=== PATIENT | male | born 1960 | race Caucasian/White ===

== ENCOUNTER → 2018-07-31 07:59 | Outpatient (CLI) | payer BC, SELFPAY ==
[2018-07-31 10:42] LABS: Absolute Neutrophil Count 6.4 X10^3/uL (2.0-7.7); Basophil# 0.01 X10^3/uL; Basophil% 0.1 % (0-1); Eosinophil# 0.08 X10^3/uL; Eosinophils% 1.1 % (0-5); Hematocrit 44.4 % (40-54); Hemoglobin 14.3 g/dl (13.0-16.5); Lymphocyte % 9.2 % (19-41); Mean Corp Hgb Conc 32.2 g/gl (32-36); Mean Corpuscular Hgb 31.2 pg (27.0-32.0); Mean Corpuscular Volume 96.9 fL (80-94); Monocyte# 0.39 X10^3/uL; Monocyte% 5.1 % (0-10); Neutrophil % 84.2 % (47-70); Platelet Count 156 K/mm3 (150-450); RBC Distribution Width SD 45.1 fl (35.1-43.9); Red Blood Count 4.58 M/mm3 (4.6-6.2); White Blood Count 7.6 K/mm3 (4.4-11.0)
[2018-07-31 10:43] LABS: POSITIVE COUNT NO; POSITIVE DIFFERENTIAL NO; POSITIVE MORPHOLOGY NO
[2018-07-31 11:12] LABS: AST(SGOT) 9 U/L (15-37); Alanine Aminotransfer ALT/SGPT 24 U/L (16-61); Cholesterol 179 mg/dL (200); High Density Lipoprotein 54 mg/dL; Triglycerides 109 mg/dL; Very Low Density Lipoprotein 22 mg/dL (5-40)
--- OUTSIDE RECORDS SUMMARY | 2018-10-04 15:08 | XMS RPT_ITS ---
:1960 Author Organization OHIP Care Team Providers Name Role Phone Nancy Seals Attending Unavailable Nancy Seals Referring Unavailable Nancy Seals Primary Care Unavailable PROBLEMS PROBLEMS DATE TYPE CONDITION / CODE ATTENDING STATUS SOURCE 07/31/2018 Unknown 272.4 - Other and Nancy Seals Active Tania unspecified [facility] hyperlipidemia / Hospital 272.4(ICD-9) Repository 07/31/2018 Unknown E78.5 - Nancy Seals Active [place] Hyperlipidemia, Community unspecified / Hospital E78.5(ICD-10) Repository PROCEDURES PROCEDURES No Procedure Records FoundRESULTS RESULTS CBC W/DIFF, AUTOMATED Collected: 07/31/2018 Status: F Source: TANIA 8:03 AM [facility] REPOSITORY TYPE CODE TESTS RESULT OUT OF RANGE REFERENCE UNITS LAB L100.1000 4.4-11.0 K/mm3 Normal WBC 7.6 LAB L100.1200 4.6-6.2 M/mm3 Low RBC 4.58 LAB L100.1300 13.0-16.5 g/dl Normal HGB 14.3 LAB L100.1400 40-54 % Normal HCT 44.4 LAB L100.1500 80-94 fL High MCV 96.9 LAB L100.1600 27.0-32.0 pg Normal MCH 31.2 LAB L100.1700 32-36 g/gl Normal MCHC 32.2 LAB L100.1810 11.6-14.6 % Normal RDW CV 13.0 LAB L100.1820 35.1-43.9 fl High RDW SD 45.1 LAB L100.1900 150-450 K/mm3 Normal PLT 156 LAB L100.2000 6.2-12.0 fl Normal MPV 12.0 LAB L100.2100 47-70 % High NEUT% 84.2 LAB L100.2200 19-41 % Low LY% 9.2 LAB L100.2300 0-10 % Normal MONO% 5.1 LAB L100.2400 0-5 % Normal EO% 1.1 LAB L100.2500 0-1 % Normal BASO% 0.1 LAB L100.2550 0.0-0.9 % Normal IM GRAN % 0.300 Result Comment: IG% - Immature Granulocytes (promyelocytes, myelocytes and metamyelocytes) > 1% indicates that a LEFT SHIFT is Present. LAB L100.2620 2.0-7.7 X10 3/uL Normal Absolute Neut 6.4 LAB L100.2720 0.83-4.51 X10 3/ul Low Absolute Lymph 0.70 Performed By: #### L100.0100 #### [facility] [address], [place], [address] LIPID PROFILE Collected: 07/31/2018 Status: F Source: COCHRANE 8:03 AM [facility] REPOSITORY TYPE CODE TESTS RESULT OUT OF RANGE REFERENCE UNITS LAB L501.4900 200 mg/dL Normal CHOL 179 Result Comment: <200 mg/dL Desirable 200-240 mg/dL Borderline >240 mg/dL High Risk LAB L501.5000 mg/dL Normal TRIG 109 Result Comment: The drugs N-Acetylcysteine and Metamizole may falsely depress this assay. Serum Triglycerides Reference Interval Normal <150 mg/dL Borderline high 150 - 199 mg/dL High 200 - 499 mg/dL Very High > or = 500 mg/dL LAB L501.6400 mg/dL Normal HDL 54 Result Comment: The drugs N-Acetylcysteine and Metamizole may falsely depress this assay. Reference Range HDL <40 mg/dL Low HDL Cholesterol HDL >or= 60 mg/dL High HDL Cholesterol LAB L501.6500 0-130 mg/dL Normal LDL 103 LAB L501.6600 5-40 mg/dL Normal VLDL 22 Performed By: #### L500.4100 #### [facility] [address] [place], [address] AST(SGOT) Collected: 07/31/2018 Status: F Source: TANIA 8:03 AM [facility] REPOSITORY TYPE CODE TESTS RESULT OUT OF RANGE REFERENCE UNITS LAB L501.4100 15-37 U/L Low AST 9 Performed By: #### L501.4100 #### [facility] [address] [place], [address] ALANINE AMINOTRANSFERAS Collected: 07/31/2018 Status: F Source: TANIA (SGPT) 8:03 AM [facility] REPOSITORY TYPE CODE TESTS RESULT OUT OF RANGE REFERENCE UNITS LAB L501.4405 16-61 U/L Normal ALT 24 Performed By: #### L501.4405 #### [facility] [address] [place], [address] ALLERGIES ALLERGIES No Allergies Records FoundENCOUNTERS ENCOUNTERS ADMIT/DISCHARGE ACCOUNT ADMITTING ENCOUNTER LOCATION SOURCE NUMBER CLASS 07/31/2018 [id number] Ambulatory [facility] ing:MTLAB Repository PAYERS PAYERS ENCOUNTER GUARANTOR PAYER SUBSCRIBER SOURCE 07/31/2018 CHELSEY WHITE Primary CHELSEY Marin [id number] Insurance:[facility] : [place] Number: [id number] 17137Nlt: (582) [id number] Repository [phone] () Date:[id number] [id number] [place] [address] [id number]: 07/31/2018 Secondary NOT GIVENPAZ Marin Insurance:SELF PAY [facility] Number: Effective Repository Date:2018-07-31
== END ==
PROVIDERS: Family Provider Family Medicine; PCP Family Medicine; Referring Provider Family Medicine; Visit Provider Family Medicine
DX: E78.5 Hyperlipidemia, unspecified (principal)
CPT/HCPCS: 36415; 80061; 84450; 84460; 85025

== ENCOUNTER → 2019-08-19 07:01 | Outpatient (CLI) | payer BC, SELFPAY ==
[2019-08-19 10:40] LABS: AST(SGOT) 10 U/L (15-37); Alanine Aminotransfer ALT/SGPT 26 U/L (16-61); Cholesterol 171 mg/dL (200); High Density Lipoprotein 49 mg/dL; Triglycerides 83 mg/dL; Very Low Density Lipoprotein 17 mg/dL (5-40)
== END ==
PROVIDERS: PCP Family Medicine; Referring Provider Family Medicine; Visit Provider Family Medicine
DX: Z00.00 Encounter for general adult medical examination without abnormal findings (principal); Z12.5 Encounter for screening for malignant neoplasm of prostate; E78.5 Hyperlipidemia, unspecified
CPT/HCPCS: 36415; 80061; 84153; 84450; 84460; G0103

== ENCOUNTER → 2023-08-20 | Outpatient (CLI) | payer BC, SELFPAY ==
[2023-08-20 10:03] LABS: Absolute Lymphocyte Count 1.33 X10^3/uL (0.83-4.51); Basophil# 0.04 X10^3/uL; Basophil% 0.8 % (0-1); Eosinophil# 0.08 X10^3/uL; Eosinophils% 1.6 % (0-5); Hematocrit 40.6 % (40-54); Hemoglobin 13.4 g/dL (13.0-16.5); Lymphocyte # 1.33 X10^3/ul (0.83-4.51); Lymphocyte % 27.4 % (19-41); Mean Corpuscular Hgb 31.7 pg (27.0-32.0); Mean Platelet Vol. 11.6 fl (6.2-12.0); Monocyte# 0.43 X10^3/uL; Monocyte% 8.8 % (0-10); NRBC Flagged by Analyzer 0 % (0-5); Neutrophil # 2.97 X10^3/uL (2.7-7.7); Neutrophil % 61.2 % (47-70); Platelet Count 171 K/mm3 (150-450); RBC Distribution Width CV 12.9 % (11.6-14.6); RBC Distribution Width SD 45.1 fl (35.1-43.9); Red Blood Count 4.23 M/mm3 (4.6-6.2); White Blood Count 4.9 K/mm3 (4.4-11.0)
[2023-08-20 11:34] LABS: AST(SGOT) 15 U/L (15-37); Alanine Aminotransfer ALT/SGPT 30 U/L (16-61); Cholesterol 173 mg/dL (200); High Density Lipoprotein 54 mg/dL; Magnesium 2.4 mg/dL (1.6-2.6); Triglycerides 129 mg/dL; Very Low Density Lipoprotein 26 mg/dL (5-40)
== END | disposition home or self-care (01) ==
PROVIDERS: PCP Family Medicine; Referring Provider Family Medicine; Visit Provider Family Medicine
DX: E78.5 Hyperlipidemia, unspecified (principal); K21.9 Gastro-esophageal reflux disease without esophagitis
CPT/HCPCS: 36415; 80061; 83735; 84450; 84460; 85025

== ENCOUNTER → 2023-08-29 | Outpatient (CLI) | payer BC, SELFPAY ==
[2023-08-29 18:05] LABS: PSA,Total - Annual Screen 1.33 ng/mL (0.00-4.00)
== END | disposition home or self-care (01) ==
LOC: MTLAB 15:32
PROVIDERS: PCP Family Medicine; Referring Provider Family Medicine; Visit Provider Family Medicine
DX: Z12.5 Encounter for screening for malignant neoplasm of prostate (principal)
CPT/HCPCS: 36415; 84153; G0103

== ENCOUNTER → 2025-01-05 | Outpatient (CLI) | payer MEDICARE, SELFPAY ==
--- NOTE | 2025-01-05 14:05 | US_ITS ---
PROCEDURE: THYROID, 01/05/2025 REASON FOR EXAM: NODULE TECHNIQUE: Grayscale and color Doppler imaging of the thyroid was performed. COMPARISON: None FINDINGS: Right lobe measures 5.5 x 1.8 x 1.4cm. Essentially homogeneous background echotexture. No abnormal vascularity. No solid or mostly solid nodules are identified. Left lobe measures 7.7 x 3.53.4 cm. Essentially homogeneous background echotexture. No abnormal vascularity. Nodules as below: *6.0 x 3.1 x 3.3 cm, solid, mostly isoechoic, slightly taller than wide on transverse imaging, TI-RADS 4. Isthmus measures 5 mm in thickness. Nodules as below: *1.4 x 0.9 x 1.4 cm, solid, hypoechoic, TI-RADS 4. *1.4 x 1.5 x 0.7 cm, solid, hypoechoic, TI-RADS 4. US/Thyroid IMPRESSION: 1. Assessment is TI-RADS 4. A 6.0 cm nodule on the LEFT and a 1.5 cm nodule in the isthmus meet criteria for FNA which is recommended as per the below. A 1.4 cm TI-RADS 4 nodule in the LEFT warrants f ollow-up in 1 year per the below. 2. Otherwise homogeneous gland with relative enlargement of the LEFT lobe by th e dominant nodule. Management recommendations for TI-RADS 4 findings: FNA if = 1.5 cm; Follow if = 1 cm at 1, 2, 3, and 5 years. Recommendations per ACR Thyroid Imaging, Reporting and Data System (TI-RADS): Lio griffith Paper of the ACR TI-RADS Committee, 2017 ([email or web address]/[email or web address]) Reading Location: [id number]
--- OUTSIDE RECORDS SUMMARY | 2025-01-05 22:30 | XMS RPT_ITS | CCD ---
Author Organization [facility] Care Team Providers Care Customs Compliance Specialist Name Role Phone Scott Spears Referring Unavailable Scott Spears Primary Care Unavailable Scott Spears Attending Unavailable Scott Spears Referring Unavailable Scott Spears Primary Care Unavailable Scott Spears Attending Unavailable Problems Problem Classification Problem Date Documented Da te Episodic/Chronic Hyperplasia of prostate (1 source) Benign prostatic hyperplasia with lower urinary tract symptoms; Translations: [Benign prostatic hyperplasia with lower urinary tract symptoms] Onset: 01-03-2025 Chronic Thyroid disorders (1 source) Nontoxic single thyroid nodule; Translations: [Nontoxic single thyroid nodule] Onset: 01-03-2025 Chronic Results Test Name Value Interpretation Reference Range Facility No Panel InformationOrdered By: Nancy Seals on 08-29-2023 Prostate Specific Antigen Screen 1.33 ng/mL 0.00-4.00 [facility] Comment on above: This test was perfor med using the TPSA assay method for theFoodtoeat chemistry system. Values obtained with differentassay methods cannot be used interchangably.When changing PSA assays in the course of monitoring apatient, additional sequential testing should be carriedout to confirm baseline values. Absolute lymphocyte countOrd ered By: Nancy Seals on 08-20-2023 Lymphocytes Auto (Unsp spec) [#/Vol] 1.33 10*3/uL 0.83-4.51 [facility] Automated lymphocyte count a s percentage of total leukocytesOrdered By: Nancy Seals on 08-20-2023 Lymphocytes/100 WBC Auto (Unsp spec) 27.4 % 19-41 [facility] Basophil percentageOrdered B y: Nancy Seals on 08-20-2023 Basophils/100 WBC (Bld) 0.8 % 0-1 [facility] Cholesterol [Mass/Vol] 173 mg/dL <200 [facility] Comment on above: <200 mg/dL Desirable 200-240 mg/dL Borderline >240 mg/dL High Risk Eosinophils/100 WBC (Bld) 1.6 % 0-5 [facility] Hemoglobin (Bld) [Mass/Vol] 13.4 g/dL 13.0-16.5 [facility] Monocytes/100 WBC (Bld) 8.8 % 0-10 [facility] Neutrophils (Bld) [#/Vol] 3.0 10*3/uL 2.0-7.7 [facility] Neutrophils/100 WBC (Bld) 61.2 % 47-70 [facility] Triglyceride [Mass/Vol] 129 mg/dL <199 [facility] Comment on above: The drugs N-Acetylcy steine and Metamizole may falsely depress this assay.Serum Triglycerides Reference Interval Normal <150 mg/dL Borderline high 150 - 199 mg/dL High 200 - 499 mg/dL Very High > or = 500 mg/dL WBC (Bld) [#/Vol] 4.9 10*3/uL 4.4-11.0 [facility] Determination of erythrocyte mean corpuscular volume (MCV)Ordered By: Nanyc Seals on 08-20-2023 MCV (RBC) [Entitic vol] 96.0 fL 80-94 [facility] Erythrocyte distribution wid th ratioOrdered By: Nancy Seals on 08-20-2023 Erythrocyte distribution width (RBC) [Ratio] 12.9 % 11.6-14.6 [facility] Erythrocyte distribution wid th standard deviationOrdered By: Nancy Seals on 08-20-2023 Erythrocyte distribution width (RBC) [Entitic vol] 45.1 fL 35.1-43.9 [facility] Hematocrit Auto (Bld) [Volum e fraction]Ordered By: Nancy Seals on 08-20-2023 Hematocrit (Bld) [Volume fraction] 40.6 % 40-54 [facility] Immature granulocytes/100 WB C Auto (Bld)Ordered By: Nancy Seals on 08-20-2023 Immature granulocytes/100 WBC (Bld) 0.200 % 0.0-0.9 [facility] Comment on above: IG% - Immature Granu locytes (promyelocytes, myelocytes and metamyelocytes) > 1% indicates that a LEFT SHIFT is Present. Laboratory - Chemistry and C hemistry - challengeOrdered By: Nancy Seals on 08-20-2023 ALT [Catalytic activity/Vol] 30 U/L 16-61 [facility] Cholesterol in HDL [Mass/Vol] 54 mg/dL >40 [facility] Comment on above: The drugs N-Acetylcy steine and Metamizole may falsely depress this assay. Reference Range HDL <40 mg/dL Low HDL Cholesterol HDL >or= 60 mg/dL High HDL Cholesterol Cholesterol in LDL [Mass/Vol] 93 mg/dL 0-130 [facility] Magnesium [Mass/Vol] 2.4 mg/dL 1.6-2.6 [facility] - Hematology and Cell countsOrdered By: Nancy Seals on 08-20-2023 MCH (RBC) [Entitic mass] 31.7 pg 27.0-32.0 [facility] MCHC (RBC) [Mass/Vol] 33.0 g/dL 32-[address] [facility] Nucleated RBC/100 WBC (Bld) [Ratio] 0 % 0-5 [facility] Platelet mean volume (Bld) [Entitic vol] 11.6 fL 6.2-12.0 [facility] Platelets (Bld) [#/Vol] 171 10*3/uL 150-450 [facility] No Panel InformationOrdered By: Nancy Seals on 08-20-2023 VLDL Cholesterol 26 mg/dL 5-40 [facility] RBC Auto (Bld) [#/Vol]Ordere d By: Nancy Seals on 08-20-2023 RBC (Bld) [#/Vol] 4.23 10*6/uL 4.6-6.2 [facility] Thin prep Papanicolaou smear with manual screeningOrdered By: Nancy Seals on 08-20-2023 Thin prep Papanicolaou smear with manual screening 15 U/L 15-37 [facility] Encounters Encounter Date Encounter Type Care Provider Facility Start: 01-07-2025 ambulatory Scott Spears Facilit y:[facility] Start: 01-05-2025 ambulatory Scott Spears Facilit y:[facility] Start: 08-29-2023 End: 08-29-2023 ambulatory [facility] Work Phone: Start: 08-29-2023 End: 08-29-2023 Patient encounter procedure [facility] Work Phone: Start: 08-20-2023 End: 08-20-2023 ambulatory [facility] Work Phone: Start: 08-20-2023 End: 08-20-2023 Patient encounter procedure [facility] Work Phone: Payers Date Payer Category Payer Self-pay [id number] 2024 Private Health Insurance [id number] Unknown NATALIE [id number] Unknown [id number] Unknown [id number] Social History Date Type Detail Facility Tobacco smoking stat [facility] Unknown if ever smoked [facility] Work Phone: Start: 1960 Sex Assigned At Male [facility] Evaluation note Note Date & Type Note Facility Evaluation note No assessment information availa ble [facility] Work Phone: Chief Complaint and Reason for Visit Chief Complaint EORDER Chief Complaint EORDER PSA Summary Purpose Family History No Family History Records Found Advance Directives No Advanced Directives Records Found Additional Source Comments Care Teams (unrecognized sec tion and content) Team Status: Active Member Role Status Dates Dr. Nancy Seals MD Family Provider Active Dr. Nancy Seals MD Primary Care Provider Active Team Status: Inactive Member Role Status Dates Dr. Nancy Seals MD Primary Care Prov ider, Attending Provider, Referring Provider Active Goals (unrecognized section and content) Goals may be documented in a n alternate sectionGoals may be documented in an alternate section (unrecognized sect ion and content) No Status Records Found INFORMATION SOURCE (unrecogn ized section and content) DATE CREATED AUTHOR 01/04/2025 [facility] FOR RECORDS PERTAINING TO PATIENTS WHO ARE OR HAVE BEEN ENROLLED IN A CHEMICAL DEPENDENCY/SUBSTANCEABUSE PROGRAM, SOME INFORMATION MAY BE OMITTED. This clinical summary was aggregated from multiple sources. Caution should be exercised in using it in the provision of clinical care. This summary normalizes information from multiple sources, and as a consequence, information in this document may materially change the coding, format and clinical context of patient data. In addition, data may be omitted in some cases. CLINICAL DECISIONS SHOULD BE BASED ON THE PRIMARY CLINICAL RECORDS. [facility] [employer] [facility]. provides no warranty or guarantee of the accuracy or completeness of information in this document.
== END | disposition home or self-care (01) ==
PROVIDERS: PCP Family Medicine; Referring Provider Family Medicine; Visit Provider Family Medicine
DX: E04.1 Nontoxic single thyroid nodule (principal)
CPT/HCPCS: 76536

== ENCOUNTER → 2025-01-07 | Outpatient (CLI) | payer MEDICARE, SELFPAY ==
--- NOTE | 2025-01-07 10:22 | US_ITS ---
PROCEDURE: POST VOID RESIDUAL BLADDER 01/07/2025 REASON FOR EXAM: BPH OBSTRUCTION TECHNIQUE: POST VOID RESIDUAL BLADDER COMPARISON: None FINDINGS: Prevoid volume: 49.3 mL Postvoid volume 1.9 mm. Bladder wall thickness: 3 mm. US/Post Void Residual Bladder IMPRESSION: No significant postvoid residual. Reading Location: [id number]
== END | disposition home or self-care (01) ==
LOC: US 10:20
PROVIDERS: PCP Family Medicine; Referring Provider Family Medicine; Visit Provider Family Medicine
DX: N40.1 Benign prostatic hyperplasia with lower urinary tract symptoms (principal)
CPT/HCPCS: 51798

== ENCOUNTER → 2025-05-19 | Outpatient (CLI) | payer MEDICARE, SELFPAY ==
--- NOTE | 2025-05-19 13:04 | RAD_ITS ---
PROCEDURE: RAD/Chest PA and Lateral
[2025-05-19 15:00] LABS: Hematocrit 33.2 % (40-54); Hemoglobin 9.9 g/dL (13.0-16.5); Immature Granulocytes Count 0.020 X10^3/uL (0.0-0.0); Mean Corp Hgb Conc 29.8 g/dL (32-36); Mean Corpuscular Volume 79.6 fL (80-94); NRBC Flagged by Analyzer 0 % (0-5); POSITIVE MORPHOLOGY YES; Platelet Count 256 K/mm3 (150-450); RBC Distribution Width CV 22.5 % (11.6-14.6); RBC Distribution Width SD 64.2 fl (35.1-43.9); Red Blood Count 4.17 M/mm3 (4.6-6.2); White Blood Count 6.1 K/mm3 (4.4-11.0)
[2025-05-19 15:01] LABS: Differential Indicated SCAN CRITERIA MET
[2025-05-19 15:26] LABS: Anisocytosis 1+
[2025-05-19 15:35] LABS: AST(SGOT) 17 U/L (<=37); Alanine Aminotransfer ALT/SGPT 19 U/L (<=46); Albumin, Serum 4.2 g/dL (3.4-4.8); Alkaline Phosphatase 92 U/L (40-129); Anion Gap 11 (5-15); BUN 20 mg/dL (4-19); BUN/Creat Ratio 20.0 RATIO (10-20); Calcium,Total 9.7 mg/dL (7.6-11.0); Carbon Dioxide 26.9 mmol/L (21.0-32.0); Chloride 101 mmol/L (98-108); Cholesterol 146 mg/dL (<=200); Ferritin 49 ng/mL (37-417); Globulin 3.0 g/dL (2.2-4.2); Glucose 109 mg/dL (70-99); Low Density Lipoprotein Calc. 88 mg/dL; Potassium 4.1 mmol/L (3.3-5.1); Pro- Brain NATRIURETIC PEPTIDE 324 pg/mL (<=900); Triglycerides 102 mg/dL; Very Low Density Lipoprotein 20 mg/dL (5-40); Vitamin B12 1298 pg/mL (180-914); cholesterol:hdl ratio screen 3.72
[2025-05-19 15:57] LABS: Iron 25 ug/dL (65-175); Iron Binding Capacity,Total 430 ug/dL (250-450); Iron Binding Capacity,Unsat 405 ug/dL (228-428)
[2025-05-19 16:05] LABS: FOLATES,SERUM (FOLIC ACID) 23.00 ng/mL (4.60-34.80)
== END | disposition home or self-care (01) ==
PROVIDERS: PCP Family Medicine; Referring Provider Family Medicine; Visit Provider Family Medicine
DX: E04.1 Nontoxic single thyroid nodule (principal); I21.9 Acute myocardial infarction, unspecified; R06.02 Shortness of breath; D64.9 Anemia, unspecified
CPT/HCPCS: 36415; 71046; 80053; 80061; 82607; 82728; 82746; 83540; 83550; 83880; 84439; 84443; 85025; 86376; 86800

== ENCOUNTER → 2025-06-01 | Outpatient (CLI) | payer MEDICARE, SELFPAY ==
[2025-06-01 12:21] LABS: Hematocrit 35.4 % (40-54); Hemoglobin 10.3 g/dL (13.0-16.5); Mean Corp Hgb Conc 29.1 g/dL (32-36); Mean Corpuscular Volume 82.5 fL (80-94); Mean Platelet Vol. 11.0 fl (6.2-12.0); POSITIVE MORPHOLOGY YES; Platelet Count 343 K/mm3 (150-450); RBC Distribution Width CV 24.7 % (11.6-14.6); RBC Distribution Width SD 73.1 fl (35.1-43.9); Red Blood Count 4.29 M/mm3 (4.6-6.2); White Blood Count 5.6 K/mm3 (4.4-11.0)
[2025-06-01 12:22] LABS: Scan Indicated on CBC? Y/N YES- FLAGS NOTED
[2025-06-01 12:47] LABS: Differential Comment SCANNED
== END | disposition home or self-care (01) ==
LOC: MTLAB 11:17
PROVIDERS: PCP Family Medicine; Referring Provider Family Medicine; Visit Provider Family Medicine
DX: D64.9 Anemia, unspecified (principal)
CPT/HCPCS: 36415; 85027

== ENCOUNTER → 2025-06-03 | Outpatient (CLI) | payer MEDICARE, SELFPAY ==
--- NOTE | 2025-06-03 06:52 | ECHOCS_ITS ---
Reason For Study Reason For Study: SOB Procedure This was a 2D Doppler, Color Flow transthoracic echocardiogram. Exam performed in department. Left Ventricle Normal size left ventricle. Normal left ventricle wall thickness. Left ventriclar EF by Gomez's biplane: 64%. Normal systolic function. Normal diastolic function. E/e' suggest normal filling pressures. No regional wall motion abnormalities noted. Right Ventricle Normal right ventricle. Normal systolic function. Unable to estimate RV systolic pressure due to insufficient tricuspid regurgitant envelope. Atria The left and right atria are normal. Right atrial pressure estimated to be: 3 mmHg. Normal atrial septum. Mitral Valve Normal mitral valve. No mitral stenosis. Trace mitral regurgitation. Tricuspid Valve Normal tricuspid valve. No tricuspid stenosis. Trace tricuspid regurgitation. Aortic Valve Tricuspid valve. Calcified right coronary cusp. No hemodynamically significant aortic stenosis. No aortic regurgitation. Pulmonic Valve Normal pulmonic valve. No pulmonic stenosis. Trace pulmonic insufficiency. Great Vessels Normal sized aortic root. Normal ascending aorta. Pericardium/Pleural No pericardial effusion. MMode/2D Measurements & Calculations LVIDd: 5.2 cm IVSd: 1.2 cm Ao root diam: 3.5 cm LVIDs: 3.4 cm LVPWd: 1.1 cm RVDd: 3.8 cm FS: 33.3 % asc Aorta Diam: 3.8 cm LAV(MOD-bp): 71.1 ml LVAd ap4: 39.0 cm2 LAV(MOD-bp) Indexed: 36.4 ml/m2 LVLd ap4: 9.9 cm LAV(MOD-sp2): 70.0 ml EDV(MOD-sp4): 125.7 ml LAV(MOD-sp4): 73.0 ml EDV(sp4-el): 130.0 ml LVAs ap4: 20.5 cm2 LVLs ap4: 8.1 cm ESV(MOD-sp4): 45.3 ml ESV(sp4-el): 43.8 ml EF(MOD-sp4): 64.0 % EF(sp4-el): 66.3 % LVAd ap2: 34.4 cm2 SV(MOD-sp4): 80.4 ml SV(MOD-sp2): 73.0 ml LVLd ap2: 8.2 cm SI(MOD-sp4): 41.2 ml/m2 SI(MOD-sp2): 37.3 ml/m2 EDV(MOD-sp2): 119.3 ml EDV(sp2-el): 122.9 ml LVAs ap2: 19.0 cm2 LVLs ap2: 6.7 cm ESV(MOD-sp2): 46.3 ml ESV(sp2-el): 46.0 ml EF(MOD-sp2): 61.2 % SV(sp4-el): 86.1 ml LA A4 area: 22.1 cm2 RA A4 area: 23.4 cm2 Time Measurements MV dec time: 0.26 sec Doppler Measurements & Calculations MV E max clarke: 53.1 cm/sec Lat Peak E' Clarke: 10.6 cm/sec Med Peak E' Clarke: 7.1 cm/sec MV A max clarke: 62.0 cm/sec E/E' lat: 5.0 E/E' med: 7.4 MV E/A: 0.86 MV V2 max: 77.6 cm/sec MV P1/2t max clarke: 67.9 cm/sec Ao V2 max: 157.8 cm/sec MV max P.4 mmHg MV P1/2t: 58.8 msec Ao max P.0 mmHg MV V2 mean: 41.6 cm/sec MV dec slope: 338.6 cm/sec2 Ao V2 mean: 102.4 cm/sec MV mean P.78 mmHg Ao mean P.7 mmHg MV V2 VTI: 25.2 cm MVA(P1/2t): 3.7 cm2 Ao V2 VTI: 29.9 cm AV (velocity ratio): 0.63 LV V1 max: 106.8 cm/sec PA V2 max: 117.0 cm/sec PI dec slope: 70.7 cm/sec2 LV V1 max P.6 mmHg LV V1 mean P.5 mmHg LV V1 mean: 75.2 cm/sec LV V1 VTI: 18.8 cm ECHO/Echo Complete W/ Contrast Interpretation Summary Normal left ventricular systolic function with EF: 64% by Gomez's biplane. Normal left ventricular diastolic function Normal right ventricular systolic function No hemodynamically significant valvular disease. Ordering Physician: Scott Spears Referring Physician: Scott Spears Performed By: Yanna Amaro RDCS, RVT
--- OUTSIDE RECORDS SUMMARY | 2025-06-03 06:54 | XMS RPT_ITS | CCD ---
Author Organization [facility] Care Team Providers Care Enterprise Account Executive Name Role Phone Tory GAITAN, Dr. Araceli Alvarez Primary Care Provider [phone] Tory GAITAN, Dr. Araceli Alvarez Attending Provider [phone] Tory GAITAN, Dr. Araceli Alvarez Referring Provider Unavailable Primary Care Provider UnavailAraceli Buckley MD Primary Care Provider PA BRITO Attending Unavailable ILEANA HINOJOSA Attending Unavailable ARACELI LOPEZ Primary Care Unavailable PA BRITO Referring Unavailable MICAELA, ILEANA Referring Unavailable ARACELI LOPEZ Primary Care Unavailable ILEANA HINOJOSA Referring Unavailable ILEANA HINOJOSA Attending Unavailable Araceli Lopez Referring Unavailable Araceli Lopez Attending Unavailable Araceli Lopez Primary Care Unavailable Araceli Lopez Referring Unavailable Araceli Lopez Attending Unavailable Araceli Lopez Primary Care Unavailable Araceli Lopez Referring Unavailable Araceli Lopez Attending Unavailable Araceli Lopez Primary Care Unavailable Araceli Lopez Referring Unavailable Araceli Lopez Attending Unavailable Araceli Lopez Primary Care Unavailable Allergies Allergy Classification Reported Allergen(s) Allergy Type Date of Onset Reaction(s) Facility (7 sources) house dust allergenic extract; Translations: [HOUSE DUST] Drug Allergy 5 Other: See Comments [facility] (7 sources) Tetanus immune globulin; Translations: [TETANUS IMMUNE GLOBULIN F(AB')2 (EQUINE)] Drug Allergy 5 Unknown [facility] (7 sources) Animal Dander; Translations: [ANIMAL DANDER] Propensity to adverse reactions to drug 5 Other: See Comments [facility] Medications Current Medications Medication Drug Class(es) Dates Sig (Normalized) Sig (Original) [id number] 200 actuat albuterol 0.09 mg/actuat metered dose inhaler (6 sources) beta2-Adrenergic Agonist take 2 puff(s) by inhalation every four hours as needed for wheezing albuterol HFA (PROVENTIL HFA, VENTOLIN HFA) 90 mcg/actuation inhaler Inhale 2 puffs as instructed every 4 hours as needed for wheezing/shortness of breath. Active atorvastatin 20 mg oral tablet (6 sources) HMG-CoA Reductase Inhibitor take 1 tablet by mouth once daily at bedtime atorvastatin (LIPITOR) 20 mg tablet Take 20 mg by mouth daily at bedtime. Active ferrous sulfate 324 mg delayed release oral tablet (6 sources) Start: 01-09-2016 take 324 mg by mouth once daily ferrous sulfate EC 324 mg (65 mg iron) TbEC Take 324 mg by mouth once daily. 01/09/2016 Active fexofenadine hydrochloride 60 mg oral tablet (6 sources) Histamine-1 Receptor Antagonist Start: 01-07-2023 take 1 capsule by mouth once daily fexofenadine HCl (JUAN 60 MG CAP) Take 1 capsule by mouth once daily. 01/07/2023 Active RABEprazole sodium 20 mg delayed release oral tablet (6 sources) Proton Pump Inhibitor take 1 tablet by mouth once daily at bedtime RABEprazole (ACIPHEX) 20 mg tablet Take 20 mg by mouth daily at bedtime. Active Problems Problem Classification Problem Date Documented Da te Episodic/Chronic Hyperplasia of prostate (1 source) Benign prostatic hyperplasia with lower urinary tract symptoms; Translations: [Benign prostatic hyperplasia with lower urinary tract symptoms] Onset: 01-12-2025 Chronic Other lower respiratory disease (1 source) Shortness of breath; Translations: [Shortness of breath] Onset: 05-24-2025 Episodic Thyroid disorders (20 sources) Multinodular goiter; Translations: [Nontoxic multinodular goiter] Onset: 01-12-2025 01-26-2025 Chronic Results Test Name Value Interpretation Reference Range Facility Thyroid Antibodieson 025 TG AB < 1.0 Normal 0.0-0.9 [facility] Comment on above: Result Comment: Thyr oglobulin Antibody measured by [employer] It should be noted that the presence of thyroglobulin antibodies may not be pathogenic nor diagnostic, especially at very low levels. The assay escort car driver has found that four percent of individuals without evidence of thyroid disease or autoimmunity will have positive TgAb levels up to 4 IU/mL. Performed at: [address] [id number] Electric Shaver Mechanic: Charles Green PhD, Phone: [phone] Performed By: #### L 506.0200, L506.0400, L501.9520, L503.7505, L500.4050, L503.6030, L3300.6750, L503.6550, L100.0100, L503.0106, L500.4100 ####[facility] [address] [place], [place], [id number] THYR PEROX AB 11 IU/mL Normal 0-34 [facility] Comment on above: Performed By: #### L 506.0200, L506.0400, L501.9520, L503.7505, L500.4050, L503.6030, L3300.6750, L503.6550, L100.0100, L503.0106, L500.4100 ####[facility] [address] [facility] [address] [place], [place], [id number] CBC W/Diff, Automatedon 11- Anisocytosis Ql (Bld) 1+ Normal [facility] Comment on above: Performed By: #### L 506.0200, L506.0400, L501.9520, L503.7505, L500.4050, L503.6030, L3300.6750, L503.6550, L100.0100, L503.0106, L500.4100 #### [facility] [address] [facility] [place], [address] Chest PA and Lateralon 05-19 Chest PA and Lateral [facility] [address] [place], [place] [id number] Chest PA and Lateral MR#: [id number] Acct: [id number] Name: CHELSEY WHITE Jr. Rep #: [id number] : 1960 M 64 From: Omero Dunlap MD PCP: Dr. Araceli Lopez MD Status: REG CLI Study: Chest PA and Lateral Date of Exam: 05/19/25 Exam# [id number] Ordering Dr: Araceli Lopez MD PROCEDURE: CHEST PA AND LATERAL 05/19/2025 REASON FOR EXAM: SOB TECHNIQUE: Procedure Code: RADCXR Modality: DX Procedure: CHEST PA AND LATERAL FINDINGS: The heart is normal in size. Left lower lobe focal opacity suspicious for pneumonia. No acute osseous abnormalities. RAD/Chest PA and Lateral IMPRESSION: Left lower lobe opacity suspicious for pneumonia. Reading Location: [facility] CC: Dr. Araceli Lopez MD River Pilot: Signed Normal [facility] Comprehensive Metabolic Prof ilon 05-19-2025 Albumin [Mass/Vol] 4.2 g/dL Normal 3.4-4.8 [facility] Comment on above: Performed By: #### L 506.0200, L506.0400, L501.9520, L503.7505, L500.4050, L503.6030, L3300.6750, L503.6550, L100.0100, L503.0106, L500.4100 #### [facility] [address] [place], [address] Albumin/Globulin [Mass ratio] 1.4 {ratio} Normal 0.9-2.4 [facility] Comment on above: Performed By: #### L 506.0200, L506.0400, L501.9520, L503.7505, L500.4050, L503.6030, L3300.6750, L503.6550, L100.0100, L503.0106, L500.4100 #### [facility] [address] [place], [address] ALK PHOS 92 U/L Normal 40-129 [facility] Comment on above: Performed By: #### L 506.0200, L506.0400, L501.9520, L503.7505, L500.4050, L503.6030, L3300.6750, L503.6550, L100.0100, L503.0106, L500.4100 #### [facility] [address] [place], [place], [phone] ([phone] ALT [Catalytic activity/Vol] 19 U/L Normal <=46 [facility] Comment on above: Performed By: #### L 506.0200, L506.0400, L501.9520, L503.7505, L500.4050, L503.6030, L3300.6750, L503.6550, L100.0100, L503.0106, L500.4100 #### [facility] [address] [place], [place], [phone] AST [Catalytic activity/Vol] 17 U/L Normal <=37 [facility] Comment on above: Performed By: #### L 506.0200, L506.0400, L501.9520, L503.7505, L500.4050, L503.6030, L3300.6750, L503.6550, L100.0100, L503.0106, L500.4100 #### [facility] [address] [place], [place], [phone] Bilirubin [Mass/Vol] 0.22 mg/dL Normal 0.00-1.30 [facility] Comment on above: Performed By: #### L 506.0200, L506.0400, L501.9520, L503.7505, L500.4050, L503.6030, L3300.6750, L503.6550, L100.0100, L503.0106, L500.4100 #### [facility] [address] [place], [address] BUN/CRE 20.0 RATIO Normal 10-20 [facility] Comment on above: Performed By: #### L 506.0200, L506.0400, L501.9520, L503.7505, L500.4050, L503.6030, L3300.6750, L503.6550, L100.0100, L503.0106, L500.4100 #### [facility] [address] [place], [address] Calcium [Mass/Vol] 9.7 mg/dL Normal 7.6-11.0 [facility] Comment on above: Performed By: #### L 506.0200, L506.0400, L501.9520, L503.7505, L500.4050, L503.6030, L3300.6750, L503.6550, L100.0100, L503.0106, L500.4100 #### [facility] [address] [place], [place], [phone] (358) Chloride [Moles/Vol] 101 mmol/L Normal 98-108 [facility] Comment on above: Performed By: #### L 506.0200, L506.0400, L501.9520, L503.7505, L500.4050, L503.6030, L3300.6750, L503.6550, L100.0100, L503.0106, L500.4100 #### [facility] [address] [place], [address] CO2 [Moles/Vol] 26.9 mmol/L Normal 21.0-32.0 [facility] Comment on above: Performed By: #### L 506.0200, L506.0400, L501.9520, L503.7505, L500.4050, L503.6030, L3300.6750, L503.6550, L100.0100, L503.0106, L500.4100 #### [facility] [address] [place], [place], [phone] ([phone] Creatinine [Mass/Vol] 0.98 mg/dL Normal 0.70-1.20 [facility] Comment on above: Performed By: #### L 506.0200, L506.0400, L501.9520, L503.7505, L500.4050, L503.6030, L3300.6750, L503.6550, L100.0100, L503.0106, L500.4100 #### [facility] [address] [place], [place], [phone] (667) GAP 11 Normal 5-15 [facility] Comment on above: Performed By: #### L 506.0200, L506.0400, L501.9520, L503.7505, L500.4050, L503.6030, L3300.6750, L503.6550, L100.0100, L503.0106, L500.4100 #### [facility] [address] [place], [place], [phone] (774) GFR/1.73 sq M.predicted among non-blacks MDRD (S/P/Bld) [Vol rate/Area] 85 mL/min/{1.73_m2} Normal >60 [facility] Comment on above: Result Comment: mL/m in/1.73m2 CKD-EPI Creatinine Equation (2020) Performed By: #### L 506.0200, L506.0400, L501.9520, L503.7505, L500.4050, L503.6030, L3300.6750, L503.6550, L100.0100, L503.0106, L500.4100 #### [facility] [address] [place], [address] Globulin (S) [Mass/Vol] 3.0 g/dL Normal 2.2-4.2 [facility] Comment on above: Performed By: #### L 506.0200, L506.0400, L501.9520, L503.7505, L500.4050, L503.6030, L3300.6750, L503.6550, L100.0100, L503.0106, L500.4100 #### [facility] [address] [place], [address] Glucose [Mass/Vol] 109 mg/dL High 70-99 [facility] Comment on above: Performed By: #### L 506.0200, L506.0400, L501.9520, L503.7505, L500.4050, L503.6030, L3300.6750, L503.6550, L100.0100, L503.0106, L500.4100 #### [facility] [address] [place], [address] Potassium [Moles/Vol] 4.1 mmol/L Normal 3.3-5.1 [facility] Comment on above: Performed By: #### L 506.0200, L506.0400, L501.9520, L503.7505, L500.4050, L503.6030, L3300.6750, L503.6550, L100.0100, L503.0106, L500.4100 #### [facility] [address] [place], [address] Sodium [Moles/Vol] 140 mmol/L Normal 133-145 [facility] Comment on above: Performed By: #### L 506.0200, L506.0400, L501.9520, L503.7505, L500.4050, L503.6030, L3300.6750, L503.6550, L100.0100, L503.0106, L500.4100 #### [facility] [address] [place], [address] T PROT 7.3 g/dL Normal 5.9-8.4 [facility] Comment on above: Performed By: #### L 506.0200, L506.0400, L501.9520, L503.7505, L500.4050, L503.6030, L3300.6750, L503.6550, L100.0100, L503.0106, L500.4100 #### [facility] [address] [place], [place], [phone] Urea nitrogen [Mass/Vol] 20 mg/dL High 4-19 [facility] Comment on above: Performed By: #### L 506.0200, L506.0400, L501.9520, L503.7505, L500.4050, L503.6030, L3300.6750, L503.6550, L100.0100, L503.0106, L500.4100 #### [facility] [address] [place], [place], [phone] Ferritinon 05-19-2025 Ferritin [Mass/Vol] 49 ng/mL Normal 37-417 [facility] Comment on above: Performed By: #### L 506.0200, L506.0400, L501.9520, L503.7505, L500.4050, L503.6030, L3300.6750, L503.6550, L100.0100, L503.0106, L500.4100 #### [facility] [address] [place], [address] Folates,Serum (Folic Acid)on 05-19-2025 FOLATES,SERUM 23.00 ng/mL Normal 4.60-34.80 [facility] Comment on above: Order Comment: N Performed By: #### L 506.0200, L506.0400, L501.9520, L503.7505, L500.4050, L503.6030, L3300.6750, L503.6550, L100.0100, L503.0106, L500.4100 ####[facility] [address] [place], [address] Iron+Iron Binding Capacityon 05-19-2025 Iron [Mass/Vol] 25 ug/dL Low 65-175 [facility] Comment on above: Performed By: #### L 506.0200, L506.0400, L501.9520, L503.7505, L500.4050, L503.6030, L3300.6750, L503.6550, L100.0100, L503.0106, L500.4100 ####[facility] [address] [place], [place], [phone] IRON SATURATION 5.9 Low 9-55 [facility] Comment on above: Performed By: #### L 506.0200, L506.0400, L501.9520, L503.7505, L500.4050, L503.6030, L3300.6750, L503.6550, L100.0100, L503.0106, L500.4100 ####[facility] [address] [place], [place], [id number] TIBC 430 ug/dL Normal 250-450 [facility] Comment on above: Performed By: #### L 506.0200, L506.0400, L501.9520, L503.7505, L500.4050, L503.6030, L3300.6750, L503.6550, L100.0100, L503.0106, L500.4100 ####[facility] [address] [place], [place], [phone] UIBC 405 ug/dL Normal 228-428 [facility] Comment on above: Performed By: #### L 506.0200, L506.0400, L501.9520, L503.7505, L500.4050, L503.6030, L3300.6750, L503.6550, L100.0100, L503.0106, L500.4100 ####[facility] [address] [place], [place], [id number] Lipid Profileon 05-19-2025 CHOL:HDL 3.72 Normal [facility] Comment on above: Performed By: #### L 506.0200, L506.0400, L501.9520, L503.7505, L500.4050, L503.6030, L3300.6750, L503.6550, L100.0100, L503.0106, L500.4100 #### [facility] [address] [place], [place], [phone] (161) Cholesterol [Mass/Vol] 146 mg/dL Normal <=200 [facility] Comment on above: Result Comment: Chol esterol level, Desirable <200 mg/dL Borderline high cholesterol 200-239 mg/dL High cholesterol >=240 mg/dL Recommendations of the NCEP Adult Treatment Panel for the following risk-cutoff thresholds for the [place] population. Performed By: #### L 506.0200, L506.0400, L501.9520, L503.7505, L500.4050, L503.6030, L3300.6750, L503.6550, L100.0100, L503.0106, L500.4100 #### [facility] [address] [place], [address] (617) Cholesterol in HDL [Mass/Vol] 39 mg/dL Low [facility] Comment on above: Result Comment: Autumn onal Cholesterol Education Program (NCEP) guidelines: <40 mg/dL: Low HDL-cholesterol (major risk factor for CHD) >= 60 mg/dL: High HDL-cholesterol (negative risk factor for CHD) HDL-cholesterol is affected by a number of factors, e.g. smoking, exercise, hormones, sex and age. Performed By: #### L 506.0200, L506.0400, L501.9520, L503.7505, L500.4050, L503.6030, L3300.6750, L503.6550, L100.0100, L503.0106, L500.4100 #### [facility] [address] [place], [address] (506) Cholesterol in LDL [Mass/Vol] 88 mg/dL Normal [facility] Comment on above: Result Comment: Bord xypyfl=804-707 mg/dL Higher Eqyz=427 mg/dL or greater Barker Equation 2020 for LDL-C Performed By: #### L 506.0200, L506.0400, L501.9520, L503.7505, L500.4050, L503.6030, L3300.6750, L503.6550, L100.0100, L503.0106, L500.4100 #### [facility] [address] [place], [place], [id number] Cholesterol in VLDL [Mass/Vol] 20 mg/dL Normal 5-40 [facility] Comment on above: Performed By: #### L 506.0200, L506.0400, L501.9520, L503.7505, L500.4050, L503.6030, L3300.6750, L503.6550, L100.0100, L503.0106, L500.4100 #### [facility] [address] [place], [place], [id number] Triglyceride [Mass/Vol] 102 mg/dL Normal [facility] Comment on above: Result Comment: The drugs N-Acetylcysteine and Metamizole may falsely depress this assay. Normal range: <150 mg/dL Borderline High: 150-199 mg/dL High: 200-499 mg/dL Very High: >500 mg/dL Performed By: #### L 506.0200, L506.0400, L501.9520, L503.7505, L500.4050, L503.6030, L3300.6750, L503.6550, L100.0100, L503.0106, L500.4100 #### [facility] [address] [place], [place], [phone] Pro- Brain NATRIURETIC PEPTI Eliana 05-19-2025 Natriuretic peptide B (Bld) [Mass/Vol] 324 pg/mL Normal <=900 [facility] Comment on above: Result Comment: Hear t Failure Unlikely: < 300 pg/mL Heart Failure Likely < 50 Years: > 450 pg/mL 50-75 Years: > 900 pg/mL >75 Years: > 1800 pg/mL Performed By: #### L 506.0200, L506.0400, L501.9520, L503.7505, L500.4050, L503.6030, L3300.6750, L503.6550, L100.0100, L503.0106, L500.4100 #### [facility] [address] [place], [place], [id number] T4 Free Directon 05-19-2025 T4 FREE DIRECT 1.00 ng/dL Normal 0.76-1.46 [facility] Comment on above: Performed By: #### L 506.0200, L506.0400, L501.9520, L503.7505, L500.4050, L503.6030, L3300.6750, L503.6550, L100.0100, L503.0106, L500.4100 #### [facility] [address] [place], [address] Thyroid Stim Hormone (TSH)on 05-19-2025 TSH 1.540 uIU/mL Normal 0.300-4.200 [facility] Comment on above: Performed By: #### L 506.0200, L506.0400, L501.9520, L503.7505, L500.4050, L503.6030, L3300.6750, L503.6550, L100.0100, L503.0106, L500.4100 #### [facility] [address] [place], [place], [id number] Vitamin B12on 05-19-2025 Cobalamin (Vitamin B12) [Mass/Vol] 1298 pg/mL High 180-914 [facility] Comment on above: Performed By: #### L 506.0200, L506.0400, L501.9520, L503.7505, L500.4050, L503.6030, L3300.6750, L503.6550, L100.0100, L503.0106, L500.4100 #### [facility] [place], [address] Iban 04-13-2025 CNPN Telephone (ENSUMN) CHELSEY WHITE ([id number]) 1960 M Date Time Provider Department 04/13/25 ILEANA HINOJOSA During your visit today, we recorded the following information about you: lIeana Hinojosa MD 04/13/2025 5:14 PM Signed 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 We went over the options of thyroid surgery vs monitoring vs RFA. He would like to be monitored. I suggested him to see Dr. Martinez in endocrinology in 6 months for a follow up and second opinion. He agrees. MD Lonnie Dunn Lea, MD 04/14/2025 3:57 PM Signed Can we help schedule him with me in 6 months for thyroid nodules? Thanks! Yelitza Wu 04/15/2025 2:46 PM Signed ~ 04/15 left pt and Sent [employer] message Yelitza Trivedi 04/22/2025 10:23 AM Signed ~04/22 left an additional Voicemail to schedule with Dr. 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 - atorvastatin (LIPITOR) 20 mg tablet Take 20 mg by mouth daily at bedtime. - ferrous sulfate EC 324 mg (65 mg iron) TbEC Take 324 mg by mouth once daily. - fexofenadine HCl (JUAN 60 MG CAP) Take 1 capsule by mouth once daily. - RABEprazole (ACIPHEX) 20 mg tablet Take 20 mg by mouth daily at bedtime. Problem List As Of Date 04/13/2025 Noted Resolved Multiple thyroid nodules [E04.2] 01/26/2025 Non-toxic nodular goiter [E04.9] 01/26/2025 Encounter Status:Closed [facility] Telephone (IRASEMA) CHELSEY WHITE ([id number]) 1960 M Date Time Provider Department 04/11/25 ILEANA HINOJOSA During your visit today, we recorded the following information about you: Yen Machado 04/11/2025 2:24 PM Signed AFIRMA RESULT INDEXED INTO CHART Allergies As of Date: 04/11/2025 Noted Allergy Reaction ANIMAL DANDER 01/10/2025 14 - Other: See Comments Comments: Sneezing and tearing of eyes HOUSE DUST 01/10/2025 14 - Other: See Comments Comments: Sneezing and tearing of eyes TETANUS IMMUNE GLOBULIN F(AB')2 (*01/10/2025 16 - Unknown Date Reviewed: 03/16/2025 Reviewed by: Nelly Thompson OCCA - Fully Assessed Reason for Visit: Outside Lab Results [753] Prescriptions as of 04/13/2025 - albuterol HFA (PROVENTIL HFA, VENTOLIN HFA) 90 mcg/actuation inhaler Inhale 2 puffs as instructed every 4 hours as needed for wheezing/shortness of breath. - atorvastatin (LIPITOR) 20 mg tablet Take 20 mg by mouth daily at bedtime. - ferrous sulfate EC 324 mg (65 mg iron) TbEC Take 324 mg by mouth once daily. - fexofenadine HCl (JUAN 60 MG CAP) Take 1 capsule by mouth once daily. - RABEprazole (ACIPHEX) 20 mg tablet Take 20 mg by mouth daily at bedtime. 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 Patient will be called once results are back to finalize the plan. Patient verbalized understanding. FINAL DIAGNOSIS A - Thyroid, Left, Lobe, FNA Atypia of undetermined significance. (See comment) Ana Abel RN Allergies As of Date: 03/24/2025 Noted Allergy Reaction ANIMAL DANDER 01/10/2025 14 - Other: See Comments Comments: Sneezing and tearing of eyes HOUSE DUST 01/10/2025 14 - Other: See Comments Comments: Sneezing and tearing of eyes TETANUS IMMUNE GLOBULIN F(AB')2 (*01/10/2025 16 - Unknown Date Reviewed: 03/16/2025 Reviewed by: Nelly Thompson OCCA - Fully Assessed Reason for Visit: Results [95] Prescriptions as of 03/24/2025 - albuterol HFA (PROVENTIL HFA, VENTOLIN HFA) 90 mcg/actuation inhaler Inhale 2 puffs as instructed every 4 hours as needed for wheezing/shortness of breath. - atorvastatin (LIPITOR) 20 mg tablet Take 20 mg by mouth daily at bedtime. - ferrous sulfate EC 324 mg (65 mg iron) TbEC Take 324 mg by mouth once daily. - fexofenadine HCl (JUAN 60 MG CAP) Take 1 capsule by mouth once daily. - RABEprazole (ACIPHEX) 20 mg tablet Take 20 mg by mouth daily at bedtime. 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 Performed By: #### A SERENA ####[facility] LABCLIA [id number] [place] [address] [place] CNOVon 03-16-2025 CNOV Office Visit (ENSUMN ) CHELSEY WHITE ([id number]) 1960 M Date Time Provider Department 03/16/25 12:00 PM ILEANA HINOJOSA During your visit today, we recorded the following information about you: Pulse Blood pressure 88/minute 135/84 Nelly Thompson OCCA 03/16/2025 11:36 AM Signed Thank you for choosing the [facility] Department of Endocrinology, Diabetes and Metabolism. Did you know that you need to call 48 hours in advance of your scheduled visit, if you are unable to make your appointment? The [facility] thanks you for your commitment, because patients not showing to their appointment results in a lost opportunity for patients to receive [facility] care at the [facility]. To Cancel an appointment, please choose one of the following: - Call the Appointment Call Center at [phone] - From [place], Go to Appointments - Cancel Appts If cancelling, consider your need to reschedule to prevent further delays in your care. To Schedule an appointment, please choose one of the following: - Call the Appointment Call Center at [phone] - From [place], Go to Appointments - Request an Appt Ileana Hinojosa MD 03/16/2025 2:04 PM Signed Endocrinology [facility] Ileana Hinojosa M.D. Section of Endocrine Surgery and Advanced Laparoscopic Surgery [address] [place] [address] ENDOCRINE SURGERY FOLLOW UP NOTE NAME: Chelsey White [facility] NO: [id number] : 1960 Surgeon: Dr. Ileana Hinojosa HPI: The patient presents to my office for a follow-up regarding his multinodular goiter. Patient was last seen in the office on 01/26/2025 where he underwent bedside US and FNA of the dominant left (3.59 cm) and dominant right (1.2 cm). Patient has returned to review his biopsy results and TFTs and to discuss surgical planning. Currently, the patient has no complaints. General health has been stable. FNA 01/26/25: FINAL DIAGNOSIS A - Thyroid, Right, Lobe, FNA - RIGHT Atypia of undetermined significance. (See comment) B - Thyroid, Left, Lobe, FNA - LEFT Atypia of undetermined significance. 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 I had gone over the options and the patient had elected to have the FNA repeated for AFIRMA on the left. A neck ultrasound was performed in the office today. This showed bilobar thyroid nodules. An FNA was performed from the left thyroid nodule under US guidance using a 22 G needle in 2 passes. UNIVERSAL PROTOCOL / SAFETY CHECKLIST Procedure to be Performed: thyroid FNA Sign In: A Moment of CARE was completed. Appropriate PPE (Personal Protective Equipment) worn by all providers involved with the procedure. Special equipment not required. Patient/Surrogate Stated/Verified: Patient name, Date of , Relevant allergies, and The intended procedure Time Out: Relevant labs, photos, and/or imaging studies have been reviewed. Intended patient and procedure match the source document(s) (e.g. consent, HANDP, associated studies [imaging, pathology]) match the intended patient and procedure. Consent obtained and matches the intended procedure. Yes. Correct side/site has been marked and visible. Medications required for this procedure are verified. Fire risk assessed and is not applicable. Implants: are not applicable. Sign Out: Specimens are all correctly labeled and sent. All instruments, equipment, possible retained foreign bodies are accounted for. Yes. The post-procedure plan of care has been communicated to the patient or surrogate. LABS: Latest Ref Rng 01/26/2025 - THYROID DATA FLOWSHEET TSH 0.270 - 4.200 mIU/L 2.570 Free T4 0.9 - 1.7 ng/dL 0.9 Free T3 2.3 - 4.1 pg/mL 3.7 Biopsy Results: Right Nodule FNA - AUS Left Nodule FNA - AUS Right Afirma - Benign (Risk of malignancy 4%) Left Afirma - Inconclusive (No results due to degraded RNA) IMPRESSION: No evidence of recurrent disease on exam today. PLAN: Repeat FNA + Afirma If repeat Afirma on Left is benign than total thyroidectomy vs RFA Ileana Hinojosa MD 03/13/2025 Referring Provider: ILEANA HINOJOSA [[id number]] Allergies As of Date: 03/16/2025 Noted Allergy Reaction ANIMAL DANDER 01/10/2025 14 - Other: See Comments Comments: Sneezing and tearing of eyes HOUSE DUST 01/10/2025 14 - Other: See Comments Comments: Sneezing and tearing of eyes TETANUS IMMUNE GLOBULIN F(AB')2 (*01/10/2025 16 - Unknown Date Reviewed: 03/16/2025 Reviewed by: Nelly Thompson OCCA - Fully Assessed Reason for Visit: Thyroid Nodule [3960] Primary Visit Diagnosis:Multiple thyroid nodules [E04.2] Order(s):CYTOLOGY NON-LIQUOR STORE MANAGER [MKJ1462] Order #: [id number]. #:[id number] Prescriptions as of 03/16/2025 - albuterol HFA (PROVENTIL HFA, VENTOLIN HFA) 90 mcg/a (more content not included)... Normal [facility] CYTOLOGY NON-GYNon 5 AP DISCLAIMER Normal [facility] Comment on above: Order Comment: Speci men Type: SPECIMEN OBTAINED BY ASPIRATIONOrdering Facility: [facility] Address: [address] [place] [address] Result Comment: Janey parra Developed Test (LDT) Disclaimer: Performance characteristics of immunohistochemical, immunofluorescent, and chromogenic in-situ hybridization tests have been determined by the performing laboratory within the [facility] Department of Pathology and Laboratory Medicine ([facility], [facility], [facility], [facility], [facility], [facility], or [facility]) in a manner consistent with CLIA requirements. One or more of these tests may not have been cleared or approved by the FDA. The [facility] Department of Pathology and Laboratory Medicine is regulated under CLIA as qualified to perform high-complexity testing. These tests are used for clinical purposes. These should not be regarded as investigational or for research. Positive and negative controls stain appropriately. Performed By: #### C YTONON ####[facility] LABCLIA [id number] [place] [id number] [place] CASE REPORT Normal [facility] Comment on above: Order Comment: Speci men Type: SPECIMEN OBTAINED BY ASPIRATIONOrdering Facility: [facility] Address: [address] [place] [address] Result Comment: [facility] Cytology Report Case: [id number] Authorizing Provider: Ileana Hinojosa MD Collected: 03/16/2025 12:41 PM Ordering Location: Endocrine Surgery Received: 03/16/2025 03:18 PM Pathologist: Mylene Segundo MD Specimen: Thyroid, Left, Lobe Performed By: #### C YTONON ####[facility] LABCLIA [id number] [address] OF [facility] CLINICAL HISTORY Normal [facility] Comment on above: Order Comment: Speci men Type: SPECIMEN OBTAINED BY ASPIRATIONOrdering Facility: [facility] Address: [address] [place] [address] Result Comment: MNG, previous FNA AUS, not enough tissue for AFIRMA Afirma sample received Performed By: #### C YTONON ####[facility] LABIA [id number] [address] DIAGNOSIS COMMENT The sample shows follicular cells with architectural atypia with a subset of the follicular cells associated with lymphocytes. Normal [facility] Comment on above: Order Comment: Speci men Type: SPECIMEN OBTAINED BY ASPIRATIONOrdering Facility: [facility] Address: [address] [place] [address] Performed By: #### C YTONON ####[facility] LABIA [id number] [address] FINAL DIAGNOSIS Normal [facility] Comment on above: Order Comment: Speci men Type: SPECIMEN OBTAINED BY ASPIRATIONOrdering Facility: [facility] Address: [address] [place] [address] Result Comment: A - Thyroid, Left, Lobe, FNA Atypia of undetermined significance. (See comment) at 1510 EDT Performed By: #### C YTONON ####[facility] LABIA [id number] [address] OF [facility] FINAL PERFORMING LAB Normal [facility] Comment on above: Order Comment: Speci men Type: SPECIMEN OBTAINED BY ASPIRATIONOrdering Facility: [facility] Address: [address], [place] [address] Result Comment: Tech nical component, melting supervisor screening performed at: [facility], [address] [place] [address] CLIA: [id number] Diagnostic interpretation performed at: [facility], [address] [place] [address] CLIA# [id number] Direct Marketing Manager: Dashawn Alvarez MD Performed By: #### C YTONON ####[facility] LABIA [id number] [address] OF [facility] GROSS DESCRIPTION Normal [facility] Comment on above: Order Comment: Speci men Type: SPECIMEN OBTAINED BY ASPIRATIONOrdering Facility: [facility] Address: [address] [place] [address] Result Comment: A. T hyroid, Left, Lobe 30 cc clear pink CytoLyt . ThinPrep prepared and 4 smears. Afirma sample received Performed By: #### C YTONON ####[facility] LABIA [id number] [address] OF [place] CNPBere 03-01-2025 MIREYA Telephone (IRASEMA) CHELSEY WHITE ([id number]) 1960 M Date Time Provider Department 03/01/25 ILEANA HINOJOSA During your visit today, we recorded the following information about you: Ileana Hinojosa MD 03/01/2025 4:53 PM Signed I called him about the FNA results and gave him the option of repeat FNA for the left thyroid nodule or thyroid surgery. He would like to have the repeat biopsy. Will plan for Mar 16. He agrees. 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 - atorvastatin (LIPITOR) 20 mg tablet Take 20 mg by mouth daily at bedtime. - ferrous sulfate EC 324 mg (65 mg iron) TbEC Take 324 mg by mouth once daily. - fexofenadine HCl (JUAN 60 MG CAP) Take 1 capsule by mouth once daily. - RABEprazole (ACIPHEX) 20 mg tablet Take 20 mg by mouth daily at bedtime. 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] 01/26/2025 Encounter Status:Closed by ILEANA HINOJOSA on 03/01/25 [facility] Iban 02-16-2025 PADMAN Telephone (IRASEMA) CHELSEY WHITE ([id number]) 1960 M Date Time Provider Department 02/16/25 ILEANA HINOJOSA During your visit today, we recorded the following information about you: Allergies As of Date: 02/16/2025 Noted Allergy Reaction ANIMAL DANDER 01/10/2025 14 - Other: See Comments Comments: Sneezing and tearing of eyes HOUSE DUST 01/10/2025 14 - Other: See Comments Comments: Sneezing and tearing of eyes TETANUS IMMUNE GLOBULIN F(AB')2 (*01/10/2025 16 - Unknown Date Reviewed: 01/26/2025 Reviewed by: Fariha Crump MA - Fully Assessed Reason for Visit: Outside Labs-[facility] Ordered [1004] Prescriptions as of 02/16/2025 - albuterol HFA (PROVENTIL HFA, VENTOLIN HFA) 90 mcg/actuation inhaler Inhale 2 puffs as instructed every 4 hours as needed for wheezing/shortness of breath. - atorvastatin (LIPITOR) 20 mg tablet Take 20 mg by mouth daily at bedtime. - ferrous sulfate EC 324 mg (65 mg iron) TbEC Take 324 mg by mouth once daily. - fexofenadine HCl (JUAN 60 MG CAP) Take 1 capsule by mouth once daily. - RABEprazole (ACIPHEX) 20 mg tablet Take 20 mg by mouth daily at bedtime. 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 Right and left are sent off for Afirma testing. Will have results in 2 weeks and will call patient to finalize plan. Patient verbalized understanding. FINAL DIAGNOSIS A - Thyroid, Right, Lobe, FNA - RIGHT Atypia of undetermined significance. (See comment) B - Thyroid, Left, Lobe, FNA - LEFT Atypia of undetermined significance. (See comment) Ana Abel RN Allergies As of Date: 02/04/2025 Noted Allergy Reaction ANIMAL DANDER 01/10/2025 14 - Other: See Comments Comments: Sneezing and tearing of eyes HOUSE DUST 01/10/2025 14 - Other: See Comments Comments: Sneezing and tearing of eyes TETANUS IMMUNE GLOBULIN F(AB')2 (*01/10/2025 16 - Unknown Date Reviewed: 01/26/2025 Reviewed by: Fariha Crump MA - Fully Assessed Reason for Visit: Results [95] Prescriptions as of 02/04/2025 - albuterol HFA (PROVENTIL HFA, VENTOLIN HFA) 90 mcg/actuation inhaler Inhale 2 puffs as instructed every 4 hours as needed for wheezing/shortness of breath. - atorvastatin (LIPITOR) 20 mg tablet Take 20 mg by mouth daily at bedtime. - ferrous sulfate EC 324 mg (65 mg iron) TbEC Take 324 mg by mouth once daily. - fexofenadine HCl (JUAN 60 MG CAP) Take 1 capsule by mouth once daily. - RABEprazole (ACIPHEX) 20 mg tablet Take 20 mg by mouth daily at bedtime. 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 Performed By: #### A SERENA ####[facility] LABCLIA [id number] [address] OF [place] CNOVon 01-26-2025 CNOV Office Visit (ENSUMN ) CHRISTOPHERCHELSEY Alvarez ([id number]) 1960 M Date Time Provider Department 01/26/25 8:40 AM ILEANA HINOJOSA During your visit today, we recorded the following information about you: Pulse Blood pressure Weight 65/minute 116/75 87.8 kg Ileana Hinojosa MD 01/26/2025 10:17 AM Signed Endocrinology Metabolism [facility] Ileana Hinojosa M.D. Section of Endocrine Surgery and Advanced Laparoscopic Surgery [address] [place] [address] ENDOCRINE SURGERY NEW CONSULTATION NAME: Chelsey White CLINIC NO: [id number] : 1960 Surgeon: Dr. Ileana Hinojosa REFERRING PROVIDER: Pa Brito III [address] [facility] [address] The patient was referred by the above provider and my findings and recommendations will be communicated by way of the shared medical record. HPI: The patient was evaluated today for a consultation regarding Multinodular goiter. History of head and neck radiation: No Family history of thyroid cancer: No History of previous thyroid biopsy or any cervical operation: No PMH: PAST MEDICAL HISTORY Diagnosis Date Anemia Asthma without status asthmaticus (HCC) BPH with obstruction/lower urinary tract symptoms GERD (gastroesophageal reflux disease) Hyperlipidemia Thyroid nodule PSH: PAST SURGICAL HISTORY Procedure Laterality Date INGUINAL HERNIA REPAIR HX Left 1977 Medications: Current Outpatient Medications on File Prior to Visit Medication Sig albuterol HFA (PROVENTIL HFA, VENTOLIN HFA) 90 mcg/actuation inhaler Inhale 2 puffs as instructed every 4 hours as needed for wheezing/shortness of breath. atorvastatin (LIPITOR) 20 mg tablet Take 20 mg by mouth daily at bedtime. ferrous sulfate EC 324 mg (65 mg iron) TbEC Take 324 mg by mouth once daily. fexofenadine HCl (JUAN 60 MG CAP) Take 1 capsule by mouth once daily. RABEprazole (ACIPHEX) 20 mg tablet Take 20 mg by mouth daily at bedtime. No current facility-administered medications on file prior to visit. All: ALLERGIES Allergen Reactions Animal Dander Other: See Comments Sneezing and tearing of eyes House Dust Other: See Comments Sneezing and tearing of eyes Tetanus Immune Glob* Unknown SH: Social History Tobacco Use Smoking status: Never Smokeless tobacco: Current Types: Snuff Vaping Use Vaping status: Never Used Substance Use Topics Alcohol use: Yes Alcohol/week: 6.0 standard drinks of alcohol Types: 6 Shots of liquor per week Drug use: Never FH: Pertinent history above; otherwise, non-contributory REVIEW OF SYSTEMS: GENERAL: Well-appearing, no malaise or fevers Dyspnea:No. Dysphagia:No. Pressure symptoms:No. PHYSICAL EXAM: On physical exam, Chelsey White is well appearing, alert, and oriented and appears euthyroid. On inspection, the skin over the anterior neck is smooth, no mass is visualized. Palpation revealed no thyroid enlargement. No lymphadenopathy was palpated on either side of the neck. ULTRASOUND EXAMINATION: Ultrasound examination was performed in the office today. This demonstrated a nodules involving both thyroid lobes. The largest nodule was in the left lobe measuring 3.59 cm, was hypoechoic and was Solid. The nodule on the right was 1.2 cm and at the isthmus 1.44 cm No worrisome lymphadenopathy was appreciated in either bilateral central neck or lateral jugular chain compartments. A fine needle aspiration biopsy performed from dominant right thyroid nodule, performed from dominant left thyroid nodule, done under ultrasound guidance, and patient tolerated the procedure well. UNIVERSAL PROTOCOL / SAFETY CHECKLIST Procedure to be Performed: thyroid fine needle biopsy Sign In: A Moment of CARE was completed. Appropriate PPE (Personal Protective Equipment) worn by all providers involved with the procedure. Special equipment not required. Patient/Surrogate Stated/Verified: Patient name, Date of , Relevant allergies, and The intended procedure Time Out: Relevant labs, photos, and/or imaging studies have been reviewed. Intended patient and procedure match the source document(s) (e.g. consent, HANDP, associated studies [imaging, pathology]) match the intended patient and procedure. Consent obtained and matches the intended procedure. Yes. Correct side/site is not applicable. Medications required for this procedure are verified. Fire risk assessed and is not applicable. Implants: are not applicable. Sign Out: Specimens are all correctly labeled and sent. All instruments, equipment, possible retained foreign bodies are accounted for. Yes. The post-procedure plan of care has been communicated to the patient or surrogate. LABS: No results found for: TSH No results found for: CA ASSESSMENT: In summary, Chelsey High (more content not included)... Normal [facility] CYTOLOGY NON-GYNon 5 AP DISCLAIMER Normal [facility] Comment on above: Order Comment: Speci men Type: SPECIMEN OBTAINED BY ASPIRATIONOrdering Facility: [facility] Address: [address] [place] [address] Result Comment: Janey parra Developed Test (LDT) Disclaimer: Performance characteristics of immunohistochemical, immunofluorescent, and chromogenic in-situ hybridization tests have been determined by the performing laboratory within [facility]'s [facility] Pathology and Laboratory Medicine Department ([facility], [facility], [facility], [facility], [facility], [facility], or [facility]) in a manner consistent with CLIA requirements. One or more of these tests may not have been cleared or approved by the FDA. [facility] is regulated under CLIA as qualified to perform high-complexity testing. These tests are used for clinical purposes. These should not be regarded as investigational or for research. Positive and negative controls stain appropriately. Performed By: #### C YTONON ####[facility] LABCLIA [id number] [place] [address] [place] CASE REPORT Normal [facility] Comment on above: Order Comment: Speci men Type: SPECIMEN OBTAINED BY ASPIRATIONOrdering Facility: [facility] Address: [address] [place] [address] Result Comment: [facility] Cytology Report Case: [id number] Authorizing Provider: Ileana Hinojosa MD Collected: 01/26/2025 09:49 AM Ordering Location: Endocrine Surgery Received: 01/26/2025 01:42 PM Pathologist: Stephanie Salinas MD Specimens: A) - Thyroid, Right, Lobe, RIGHT B) - Thyroid, Left, Lobe, LEFT Performed By: #### C YTONON ####[facility] LABCLIA [id number] [address], [address] OF [place] CLINICAL HISTORY [place] Normal [facility] Comment on above: Order Comment: Speci men Type: SPECIMEN OBTAINED BY ASPIRATIONOrdering Facility: [facility] Address: [address] [place] [address] Result Comment: Afirma received for A, B Performed By: #### C YTONON ####[facility] LABCLIA [id number] [address] DIAGNOSIS COMMENT Normal [facility] Comment on above: Order Comment: Speci men Type: SPECIMEN OBTAINED BY ASPIRATIONOrdering Facility: [facility] Address: [address] [place] [address] Result Comment: A. T he specimen is of low cellularity and contains groups of follicular cells with architectural atypia. B. The specimen is of low cellularity and contains groups of follicular cells with architectural atypia. Performed By: #### C YTONON ####[facility] LABIA [id number] [address] FINAL DIAGNOSIS Normal [facility] Comment on above: Order Comment: Speci men Type: SPECIMEN OBTAINED BY ASPIRATIONOrdering Facility: [facility] Address: [address] [place] [address] Result Comment: A - Thyroid, Right, Lobe, FNA - RIGHT Atypia of undetermined significance. (See comment) B - Thyroid, Left, Lobe, FNA - LEFT Atypia of undetermined significance. (See comment) The following cell blocks were associated with this case: A1\\X09\\Cell Block, Alcohol Fixed\\X09\\ B1\\X09\\Cell Block, Alcohol Fixed\\X09\\ at 1053 EDT Performed By: #### C YTONON ####[facility] LABCLIA [id number] [address] [place] [address] [facility] [place] FINAL PERFORMING LAB Normal [facility] Comment on above: Order Comment: Speci men Type: SPECIMEN OBTAINED BY ASPIRATIONOrdering Facility: [facility] Address: [address] [place] [address] Result Comment: Tech nical component, melting supervisor screening performed at: [facility], [address] [place], [place] [address] CLIA: [id number] Diagnostic interpretation performed at: [facility], [address] [place], [place] [address] CLIA# [id number] Direct Marketing Manager: Dashawn Alvarez MD Performed By: #### C YTONON ####[facility] LABCLIA [id number] [address] STATES OF [place] GROSS DESCRIPTION Normal [facility] Comment on above: Order Comment: Speci men Type: SPECIMEN OBTAINED BY ASPIRATIONOrdering Facility: [facility] Address: [address] [place] [address] Result Comment: A. T hyroid, Right, Lobe 30 cc clear light pink CytoLyt with scant particles. ThinPrep and Cell Block prepared and 4 smears. Afirma received B. Thyroid, Left, Lobe 30 cc clear pink CytoLyt with scant particles. ThinPrep and Cell Block prepared and 4 smears. Afirma received Performed By: #### C YTONON ####[facility] LABCLIA [id number] [address] [place] No Panel Informationon 01-26 Interpretation and review of laboratory results Normal [facility] T3, FREEon 01-26-2025 Free T3 [Mass/Vol] 3.7 pg/mL 2.3 - 4.1 pg/mL [facility] T3Free SerPl-mCncon 01-27-20 25 Free T3 [Mass/Vol] 3.7 pg/mL Normal 2.3-4.1 [facility] Comment on above: Order Comment: Speci men Type: BLOOD SPECIMENOrdering Facility: [facility] Address: [address] [place] [address] [place] [address] Performed By: #### 3 016-3, 3027, 0 ####[facility] LABIA [id number] [place] [address] [place] T4 FREE/FREE THYROXINEon Free T4 [Mass/Vol] 0.9 ng/dL 0.9 - 1.7 ng/dL [facility] T4 Free SerPl-mCncon 025 Free T4 [Mass/Vol] 0.9 ng/dL Normal 0.9-1.7 [facility] Comment on above: Order Comment: Speci men Type: BLOOD SPECIMENOrdering Facility: [facility] Address: [address] [place], [place] [address] [address] Performed By: #### 3 016-3, 3027, 0 ####[facility] LABIA [id number] [address] OF [place] THYROID STIMULATING HORMONEo n 01-26-2025 TSH Qn 2.57 m[IU]/L [facility] TSH SerPl-aCncon 01-26-2025 TSH Qn 2.570 m[IU]/L Normal 0.270-4.200 [facility] Comment on above: Order Comment: Speci men Type: BLOOD SPECIMENOrdering Facility: [facility] Address: [address] [place], [place] [address] [address] Performed By: #### 3 016-3, 30247, 0 ####[facility] LABIA [id number] [place] [id number] [place] CNOVon 01-10-2025 CNOV Office Visit (GENS ) METCHELSEY MORGAN ([id number]) 1960 M Date Time Provider Department 01/10/25 2:45 PM PA BRITO During your visit today, we recorded the following information about you: Temperature Pulse Respiration Blood pressure 97.7 degrees 90/minute 12/minute 130/84 Weight Height 88.5 kg 1.727 m Carol Baker LPN 01/28/2025 1:53 PM Signed REVIEW OF SYSTEMS: General: The patient denies fatigue, denies weight loss, denies weight gain, denies feeling hot, and denies feelings of cold. Eyes: The patient denies glaucoma, denies eye injury/surgery, wears glasses or contacts. Ear/Nose/Throat: The patient notes allergies, denies hayfever, denies ear infections, and denies bloody noses. Cardiovascular: The patient denies chest pain, denies heart disease, denies high blood pressure,denies cardiac stent, denies prior heart attack, denies irregular heart beat, denies high cholesterol, denies poor circulation, denies heart failure, other cardiac issues, denies claudication, denies cold feet, denies peripheral arterial stent. Respiratory: The patient denies tuberculosis, denies pneumonia, denies frequent cough, denies pulmonary embolism, denies shortness of breath, and denies coughing up blood. Gastrointestinal: The patient denies difficulty swallowing, notes acid reflux, denies ulcers, denies vomiting, denies jaundice/hepatitis, denies gallbladder problems, denies black or tarry stools, denies hemorrhoids, denies bleeding from rectum, denies diverticulitis, denies constipation, denies diarrhea, denies loss of stool control, and denies hernias. Kidney/Bladder: The patient denies kidney stones, denies urine infections, and denies bloody urine. Skin: The patient denies a history of skin cancer, denies bleeding/changing moles, and denies a history of skin rash. Neurologic: The patient denies a history of epilepsy/convulsions, denies headaches, denies head/spinal injuries, and denies stroke/TIA. Psychiatric: The patient denies psychiatric medications, denies depression, and denies voices, denies substance abuse. Endocrine: The patient notes thyroid disorders (nodule), denies diabetes, and denies hormonal problems. Hematologic: The patient denies a history of bruising, denies bleeding, and denies anemia, denies blood clots. Infections: The patient denies a history of measles and mumps, denies rheumatic fever, and denies sexually transmitted diseases. Musculoskeletal: The patient denies back pain/injury, denies back problems, denies sciatica, denies knee/foot trouble, denies arthritis, or denies gout. When was patient's last Mammogram screening? N/A Last Colonoscopy: N/A SCOTT Diego Daniel P, MD 01/28/2025 1:53 PM Signed HISTORY AND PHYSICAL Chelsey White 1960 REFERRING PHYSICIAN: Araceli Lopez MD, MD CHIEF COMPLAINT: Consult HPI: Benjamin White is a 64-year-old male presenting for evaluation of thyroid nodules. Benjamin was referred by Dr. Lopez for evaluation of thyroid nodules. An ultrasound performed on Friday revealed a 6 x 3 x 3 cm nodule in the left lobe and an additional nodule in the isthmus. Benjamin inquires about the necessity of hormone treatment post-surgery and expresses concerns about the size of the nodules and the potential for malignancy. He is also interested in understanding the surgical procedure and its implications. Benjamin has upcoming personal commitments, including a family reunion next , a three-week stay in [place] in February to assist with the arrival of a granddaughter, and a cruise to [place] in April. He expresses a desire to schedule any necessary procedures around these events. The patient is being seen by me today at the request of Dr. Araceli Lopez MD, MD for my opinion and advice regarding Multinodular goiter (primary encounter diagnosis). PAST MEDICAL HISTORY Diagnosis Date Anemia Asthma without status asthmaticus (HCC) BPH with obstruction/lower urinary tract symptoms GERD (gastroesophageal reflux disease) Hyperlipidemia Thyroid nodule PAST SURGICAL HISTORY Procedure Laterality Date INGUINAL HERNIA REPAIR HX Left 1977 Current Outpatient Medications Medication Sig albuterol HFA (PROVENTIL HFA, VENTOLIN HFA) 90 mcg/actuation inhaler Inhale 2 puffs as instructed every 4 hours as needed for wheezing/shortness of breath. atorvastatin (LIPITOR) 20 mg tablet Take 20 mg by mouth daily at bedtime. ferrous sulfate EC 324 mg (65 mg iron) TbEC Take 324 mg by mouth once daily. fexofenadine HCl (JUAN 60 MG CAP) Take 1 capsule by mouth once daily. RABEprazole (ACIPHEX) 20 mg tablet Take 20 mg by mouth daily at bedtime. No current facility-administered medications for this visit. ALLERGIES: Animal Dander, House Dust, and Tetanus Immune Globulin F(Ab')2 (Equine) PERSONAL HISTORY: Soc (more content not included)... Normal [facility] Post Void Residual Bladderon 01-07-2025 Post Void Residual Bladder [facility] [address] [place], [place] [address] Post Void Residual Bladder MR#: [id number] Acct: [id number] Name: CHELSEY WHITE JrMoni Rep #: [id number] : 1960 M 64 From: Jefferson de souza MD PCP: Dr. Araceli Lopez MD Status: REG CLI Study: Post Void Residual Bladder Date of Exam: 01/07 Exam# [id number] Ordering Dr: Araceli Lopez MD PROCEDURE: POST VOID RESIDUAL BLADDER 01/07/2025 REASON FOR EXAM: BPH OBSTRUCTION TECHNIQUE: POST VOID RESIDUAL BLADDER COMPARISON: None FINDINGS: Prevoid volume: 49.3 mL Postvoid volume 1.9 mm. Bladder wall thickness: 3 mm. US/Post Void Residual Bladder IMPRESSION: No significant postvoid residual. Reading Location: [id number] CC: Dr. Araceli Lopez MD [place]: Signed Normal [facility] Thyroidon 01-05-2025 Thyroid [facility] [address] [place], [place] [id number] Thyroid MR#: [id number] Acct: [id number] Name: CHELSEY WHITELuh Tello Rep #: [id number] : 1960 M 64 From: Robles De La Rosa MD PCP: Dr. Araceli Lopez MD Status: REG CLI Study: Thyroid Date of Exam: 01/05/25 Exam# [id number] Ordering Dr: Araceli Lopez MD PROCEDURE: THYROID, 01/05/2025 REASON FOR EXAM: NODULE TECHNIQUE: Grayscale and color Doppler imaging of the thyroid was performed. COMPARISON: None FINDINGS: Right lobe measures 5.5 x 1.8 x 1.4cm. Essentially homogeneous background echotexture. No abnormal vascularity. No solid or mostly solid nodules are identified. Left lobe measures 7.7 x 3.53.4 cm. Essentially homogeneous background echotexture. No abnormal vascularity. Nodules as below: *6.0 x 3.1 x 3.3 cm, solid, mostly isoechoic, slightly taller than wide on transverse imaging, TI- RADS 4. Isthmus measures 5 mm in thickness. Nodules as below: *1.4 x 0.9 x 1.4 cm, solid, hypoechoic, TI-RADS 4. *1.4 x 1.5 x 0.7 cm, solid, hypoechoic, TI-RADS 4. US/Thyroid IMPRESSION: 1. Assessment is TI-RADS 4. A 6.0 cm nodule on the LEFT and a 1.5 cm nodule in the isthmus meet criteria for FNA which is recommended as per the below. A 1.4 cm TI-RADS 4 nodule in the LEFT warrants follow-up in 1 year per the below. 2. Otherwise homogeneous gland with relative enlargement of the LEFT lobe by the dominant nodule. Management recommendations for TI-RADS 4 findings: FNA if = 1.5 cm; Follow if = 1 cm at 1, 2, 3, and 5 years. Recommendations per ACR Thyroid Imaging, Reporting and Data System (TI-RADS): White Paper of the ACR TI-RADS Committee, 2017 (https://[email or web address]/[email or web address] [email or web address]) Reading Location: [id number] CC: Dr. Araceli Lopez MD [place]: Signed Normal [facility] No Panel InformationOrdered By: Nancy Seals on 08-29-2023 Prostate Specific Antigen Screen 1.33 ng/mL 0.00-4.00 [facility] Comment on above: This test was perfor med using the TPSA assay method for the[employer] chemistry system. Values obtained with differentassay methods cannot be used interchangably.When changing PSA assays in the course of monitoring apatient, additional sequential testing should be carriedout to confirm baseline values. Absolute lymphocyte countOrd ered By: Nancy Seals on 08-20-2023 Lymphocytes Auto (Unsp spec) [#/Vol] 1.33 10*3/uL 0.83-4.51 [facility] Automated lymphocyte count a s percentage of total leukocytesOrdered By: Nancy Seals on 08-20-2023 Lymphocytes/100 WBC Auto (Unsp spec) 27.4 % 19-41 [facility] Basophil percentageOrdered B y: Nancy Seals on 08-20-2023 Basophils/100 WBC (Bld) 0.8 % 0-1 [facility] Cholesterol [Mass/Vol] 173 mg/dL <200 [facility] Comment on above: <200 mg/dL Desirable 200-240 mg/dL Borderline >240 mg/dL High Risk Eosinophils/100 WBC (Bld) 1.6 % 0-5 [facility] Hemoglobin (Bld) [Mass/Vol] 13.4 g/dL 13.0-16.5 [facility] Monocytes/100 WBC (Bld) 8.8 % 0-10 [facility] Neutrophils (Bld) [#/Vol] 3.0 10*3/uL 2.0-7.7 [facility] Neutrophils/100 WBC (Bld) 61.2 % 47-70 [facility] Triglyceride [Mass/Vol] 129 mg/dL <199 [facility] Comment on above: The drugs N-Acetylcy steine and Metamizole may falsely depress this assay.Serum Triglycerides Reference Interval Normal <150 mg/dL Borderline high 150 - 199 mg/dL High 200 - 499 mg/dL Very High > or = 500 mg/dL WBC (Bld) [#/Vol] 4.9 10*3/uL 4.4-11.0 [facility] Determination of erythrocyte mean corpuscular volume (MCV)Ordered By: Nancy Seals on 08-20-2023 MCV (RBC) [Entitic vol] 96.0 fL 80-94 [facility] Erythrocyte distribution wid th ratioOrdered By: Nancy Seals on 08-20-2023 Erythrocyte distribution width (RBC) [Ratio] 12.9 % 11.6-14.6 [facility] Erythrocyte distribution wid th standard deviationOrdered By: Nancy Seals on 08-20-2023 Erythrocyte distribution width (RBC) [Entitic vol] 45.1 fL 35.1-43.9 [facility] Hematocrit Auto (Bld) [Volum e fraction]Ordered By: Nancy Seals on 08-20-2023 Hematocrit (Bld) [Volume fraction] 40.6 % 40-54 [facility] Immature granulocytes/100 WB C Auto (Bld)Ordered By: Nancy Seals on 08-20-2023 Immature granulocytes/100 WBC (Bld) 0.200 % 0.0-0.9 [facility] Comment on above: IG% - Immature Granu locytes (promyelocytes, myelocytes and metamyelocytes) > 1% indicates that a LEFT SHIFT is Present. Laboratory - Chemistry and C hemistry - challengeOrdered By: Nancy Seals on 08-20-2023 ALT [Catalytic activity/Vol] 30 U/L 16-61 [facility] Cholesterol in HDL [Mass/Vol] 54 mg/dL >40 [facility] Comment on above: The drugs N-Acetylcy steine and Metamizole may falsely depress this assay. Reference Range HDL <40 mg/dL Low HDL Cholesterol HDL >or= 60 mg/dL High HDL Cholesterol Cholesterol in LDL [Mass/Vol] 93 mg/dL 0-130 [facility] Magnesium [Mass/Vol] 2.4 mg/dL 1.6-2.6 [facility] Laboratory - Hematology and Cell countsOrdered By: Nancy Seals on 08-20-2023 MCH (RBC) [Entitic mass] 31.7 pg 27.0-32.0 [facility] MCHC (RBC) [Mass/Vol] 33.0 g/dL 32-36 [facility] Nucleated RBC/100 WBC (Bld) [Ratio] 0 % 0-5 [facility] Platelet mean volume (Bld) [Entitic vol] 11.6 fL 6.2-12.0 [facility] Platelets (Bld) [#/Vol] 171 10*3/uL 150-450 [facility] No Panel InformationOrdered By: Nancy Seals on 08-20-2023 VLDL Cholesterol 26 mg/dL 5-40 [facility] RBC Auto (Bld) [#/Vol]Ordere d By: Nancy Seals on 08-20-2023 RBC (Bld) [#/Vol] 4.23 10*6/uL 4.6-6.2 [facility] Thin prep Papanicolaou smear with manual screeningOrdered By: Nancy Seals on 08-20-2023 Thin prep Papanicolaou smear with manual screening 15 U/L 15-37 [facility] Vital Signs Date Time Vital Sign Value Performing Clinician Faci lity 03-16-2025 11:41-0400 Diastolic blood pressure 84 mm[Hg] Ileana Hinojosa MD Work Phone: [facility] 03-16-2025 11:41-0400 Heart rate 88 /min Ileana Hinojosa MD Work Phone: [facility] 03-16-2025 11:41-0400 Systolic blood pressure 135 mm[Hg] Ileana Hinojosa MD Work Phone: [facility] 01-26-2025 08:18-0400 Body mass index (BMI) [Ratio] 29.43 kg/m2 Ileana Hinojosa MD Work Phone: [facility] 01-26-2025 08:18-0400 Body weight 87.8 kg Ileana Hinojosa MD Work Phone: [facility] 01-26-2025 08:18-0400 Diastolic blood pressure 75 mm[Hg] Ileana Hinojosa MD Work Phone: [facility] 01-26-2025 08:18-0400 Heart rate 65 /min Ileana Hinojosa MD Work Phone: [facility] 01-26-2025 08:18-0400 Systolic blood pressure 116 mm[Hg] Ileana Hinojosa MD Work Phone: [facility] 01-10-2025 14:42-0400 Body height 172.7 cm Pa Brito MD Work Phone: [facility] 01-10-2025 14:42-0400 Body mass index (BMI) [Ratio] 29.65 kg/m2 Pa Brito MD Work Phone: [facility] 01-10-2025 14:42-0400 Body temperature 97.7 [degF] Pa Brito MD Work Phone: [facility] 01-10-2025 14:42-0400 Body weight 88.45 kg Pa Brito MD Work Phone: [facility] 01-10-2025 14:42-0400 Diastolic blood pressure 84 mm[Hg] Pa Brito MD Work Phone: [facility] 01-10-2025 14:42-0400 Heart rate 90 /min Pa Brito MD Work Phone: [facility] 01-10-2025 14:42-0400 Respiratory rate 12 /min Pa Brito MD Work Phone: [facility] 01-10-2025 14:42-0400 SaO2% (BldA) [Mass fraction] 96 % Pa Brito MD Work Phone: [facility] 01-10-2025 14:42-0400 Systolic blood pressure 130 mm[Hg] Pa Brito MD Work Phone: [facility] Encounters Encounter Date Encounter Type Care Provider Facility Start: 06-03-2025 ambulatory Araceli Lopez Facilit y:[facility] Start: 05-19-2025 ambulatory Araceli Lopez Facilit y:[facility] Start: 03-24-2025 End: 03-24-2025 Telephone encounter Ileana Hinojosa MD Work Phone: Endocrine Surgery Comment on above: Results Start: 03-16-2025 End: 03-16-2025 Patient encounter procedure Ileana Hinojosa MD Work Phone: Endocrine Surgery Comment on above: Multiple thyroid nod ules (Primary Dx) Start: 03-16-2025 End: 03-16-2025 ambulatory ARACELI LOPEZ Facility:[facility] Start: 03-01-2025 End: 03-01-2025 Telephone encounter Ileana Hinojosa MD Work Phone: Endocrine Surgery Comment on above: [employer] Start: 02-04-2025 End: 02-04-2025 Telephone encounter Ileana Hinojosa MD Work Phone: Endocrine Surgery Comment on above: Results Start: 01-26-2025 End: 01-26-2025 ambulatory ILEANA HINOJOSA Facility:[facility] Start: 01-26-2025 End: 01-26-2025 Patient encounter procedure Ileana Hinojosa MD Work Phone: Endocrine Surgery Comment on above: Non-toxic nodular go iter (Primary Dx); Multinodular goiter Start: 01-26-2025 End: 01-26-2025 ambulatory ILEANA HINOJOSA Facility:[facility] Start: 01-10-2025 End: 01-10-2025 Patient encounter procedure Pa Brito MD Work Phone: General Surgery Comment on above: Multinodular goiter (Primary Dx) Start: 01-10-2025 End: 01-10-2025 ambulatory PA BRITO Facility:[facility] Start: 01-07-2025 End: 01-07-[address] Araceil Lopez MD Work Phone: -Ultrasound [facility] Start: 01-07-2025 End: 01-07-[address] Araceli Lopez MD -Ultrasound [facility] Work Phone: Start: 01-07-2025 End: 01-07-2025 ambulatory Araceli Lopez Facility:[facility] Start: 01-05-2025 End: 01-05-[address] Araceli Lopez MD Work Phone: -Ultrasound [facility] Start: 01-05-2025 End: 01-05-[address] Araceli Lopez MD -Ultrasound [facility] Work Phone: Start: 01-05-2025 End: 01-05-2025 ambulatory Araceli Lopez Facility:[facility] Start: 08-29-2023 End: 08-29-2023 ambulatory [facility] Work Phone: Start: 08-29-2023 End: 08-29-2023 Patient encounter procedure [facility] Work Phone: Start: 08-20-2023 End: 08-20-2023 ambulatory [facility] Work Phone: Start: 08-20-2023 End: 08-20-2023 Patient encounter procedure [facility] Work Phone: Procedures Date Procedure Procedure Detail Performing Clinician Start: 01-07-2025 US scan of bladder Dr. Araceli Lopez MD Work Phone: Start: 01-05-2025 US scan of thyroid Dr. Araceli Lopez MD Work Phone: Plan of Treatment Date Care Activity Detail Author Start: 03-14-2025 Influenza vaccination [facility] Vacc[facility] Start: 07-14-2024 Advance Directive Discussion Advance Directive Discussion [facility] Start: 07-14-2024 Medicare Advantage Annual Wellness Visit Medicare Advantage Annual Wellness Visit [facility] Start: 03-14-2024 Covid-19 Vaccine ( season) Covid-19 Vaccine () [facility] Start: 2008 Pneumococcal Vaccine: 50+ (1 of 1 - PCV) Pneumococcal Vaccine: 50+ (1 of 1 - PCV) [facility] Start: 2003 Diabetes Screening Diabetes Screening [facility] Start: 2003 Prostate specific antigen measurement Prostate Cancer Screening Discussion [facility] Start: 2003 Screening for malignant neoplasm of colon [facility] Start: 1993 Lipid panel Lipid Screening [facility] Start: 1977 Urine microalbumin profile DTaP,Tdap,Td Vaccine (1 - Tdap) [facility] Start: 1976 Anxiety Screening Anxiety Screening [facility] Start: 1976 Depression Screening Depression Screening [facility] Start: 1976 Hepatitis C screening Hepatitis C Screening [facility] CYTOLOGY NON-LIQUOR STORE MANAGER CYTOLOGY NON-GY N Lab Routine Multinodular goiter 01/26/2025 9:49 AM EDT [facility] Work Phone: CYTOLOGY NON-LIQUOR STORE MANAGER CYTOLOGY NON-GY N Lab Routine Multiple thyroid nodules 03/16/2025 12:41 PM EDT [facility] Work Phone: Immunizations Immunization Date Immunization Notes Care Provider Dorina martínez 08-09-2024 influenza virus vacc ine, unspecified formulation Ileana Hinojosa MD Work Phone: [facility] Payers Date Payer Category Payer Self-pay [id number] 2024 Medicare (Managed Care) [employer] D[employer]ARE [id number] 2024 Private Health Insurance [id number] Unknown [id number] Unknown [id number] Unknown [id number] Unknown [id number] Unknown [id number] Social History Date Type Detail [facility] Work Phone: Start: 1960 Sex Assigned At Male [facility] Tobacco smoking stat us NHIS Unknown if ever smoked [facility] Work Phone: Start: 01-10-2025 Tobacco smoking stat us DCIS Never smoked tobacco [facility] Start: 01-10-2025 Tobacco use and exposure User of smokeless tobacco [facility] History of tobacco use Snuff User [facility] Start: 01-26-2025 End: 03-16-2025 Alcoholic beverage intake Current drinker of alcohol (finding) [facility] Start: 01-10-2025 End: 01-26-2025 Alcoholic beverage intake [facility] Start: 01-10-2025 End: 01-26-2025 Tobacco use panel [facility] Start: 06-14-2012 National Score (1-10 0), lower number is lower risk 60 [facility] Start: 1960 Sex assigned at Not on file [facility] Clinical Notes 01-06-2025 to 03-24-2025 Telephone Encounter - Ana Abel - 03/24/2025 3:27 PM EDTTelephone Encounter - Ana Abel - 03/24/2025 3:27 PM EDTBIleana alonzo MD - 03/16/2025 12:00 PM EDTPatient Instructions Note Date & Type Note Facility 03-24-2025 Telephone encounter Note FNA is being sent out for afirma testing, will have results in 2 weeks. Patient will be called once results are back to finalize the plan. Patient verbalized understanding. FINAL DIAGNOSIS A - Thyroid, Left, Lobe, FNA Atypia of undetermined significance. (See comment) Ana Abel RN [facility] 03-24-2025 Miscellaneous Notes FNA is being sent out for afirma testing, will have results in 2 weeks. Patient will be called once results are back to finalize the plan. Patient verbalized understanding. FINAL DIAGNOSIS A - Thyroid, Left, Lobe, FNA Atypia of undetermined significance. (See comment) Ana Abel RN documented in this encounter [facility] 03-16-2025 History of Presen t illness Narrative Endocrinology Metabolism [facility] Ileana Hinojosa M.D. Section of Endocrine Surgery and Advanced Laparoscopic Surgery [address] [place] [address], [place] [address] ENDOCRINE SURGERY FOLLOW UP NOTE NAME: Chelsey White CLINIC NO: [id number] : 1960 Surgeon: Dr. Ileana Hinojosa HPI: The patient presents to my office for a follow-up regarding his multinodular goiter. Patient was last seen in the office on 01/26/2025 where he underwent bedside US and FNA of the dominant left (3.59 cm) and dominant right (1.2 cm). Patient has returned to review his biopsy results and TFTs and to discuss surgical planning. Currently, the patient has no complaints. General health has been stable. FNA 01/26/25: FINAL DIAGNOSIS A - Thyroid, Right, Lobe, FNA - RIGHT Atypia of undetermined significance. (See comment) B - Thyroid, Left, Lobe, FNA - LEFT Atypia of undetermined significance. 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 I had gone over the options and the patient had elected to have the FNA repeated for AFIRMA on the left. A neck ultrasound was performed in the office today. This showed bilobar thyroid nodules. An FNA was performed from the left thyroid nodule under US guidance using a 22 G needle in 2 passes. UNIVERSAL PROTOCOL / SAFETY CHECKLIST Procedure to be Performed: thyroid FNA Sign In: A Moment of CARE was completed. Appropriate PPE (Personal Protective Equipment) worn by all providers involved with the procedure. Special equipment not required. Patient/Surrogate Stated/Verified: Patient name, Date of , Relevant allergies, and The intended procedure Time Out: Relevant labs, photos, and/or imaging studies have been reviewed. Intended patient and procedure match the source document(s) (e.g. consent, H&P, associated studies [imaging, pathology]) match the intended patient and procedure. Consent obtained and matches the intended procedure. Yes. Correct side/site has been marked and visible. Medications required for this procedure are verified. Fire risk assessed and is not applicable. Implants: are not applicable. Sign Out: Specimens are all correctly labeled and sent. All instruments, equipment, possible retained foreign bodies are accounted for. Yes. The post-procedure plan of care has been communicated to the patient or surrogate. LABS: Latest Ref Rng 01/26/2025 - THYROID DATA FLOWSHEET TSH 0.270 - 4.200 mIU/L 2.570 Free T4 0.9 - 1.7 ng/dL 0.9 Free T3 2.3 - 4.1 pg/mL 3.7 Biopsy Results: Right Nodule FNA - AUS Left Nodule FNA - AUS Right Afirma - Benign (Risk of malignancy 4%) Left Afirma - Inconclusive (No results due to degraded RNA) IMPRESSION: No evidence of recurrent disease on exam today. PLAN: Repeat FNA + Afirma If repeat Afirma on Left is benign than total thyroidectomy vs RFA Ileana Hinojosa MD 03/13/2025 documented in this encounter [facility] 03-16-2025 Note HNO ID: [id number] Author: ILEANA HINOJOSA MD Service: ? Author Type: Physician Type: Progress Notes Filed: 03/16/2025 14:04 Note Text: Endocrinology Met[facility] Ileana Hinojosa M.D. Section of Endocrine Surgery and Advanced Laparoscopic Surgery [address] [place] [address] ENDOCRINE SURGERY FOLLOW UP NOTE NAME: Chelsey White [facility] NO: [id number] : 1960 Surgeon: Dr. Ileana Hinojosa HPI: The patient presents to my office for a follow-up regarding his multinodular goiter. Patient was last seen in the office on 01/26/2025 where he underwent bedside US and FNA of the dominant left (3.59 cm) and dominant right (1.2 cm). Patient has returned to review his biopsy results and TFTs and to discuss surgical planning. Currently, the patient has no complaints. General health has been stable. FNA 01/26/25: FINAL DIAGNOSIS A - Thyroid, Right, Lobe, FNA - RIGHT Atypia of undetermined significance. (See comment) B - Thyroid, Left, Lobe, FNA - LEFT Atypia of undetermined significance. 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 I had gone over the options and the patient had elected to have the FNA repeated for AFIRMA on the left. A neck ultrasound was performed in the office today. This showed bilobar thyroid nodules. An FNA was performed from the left thyroid nodule under US guidance using a 22 G needle in 2 passes. UNIVERSAL PROTOCOL / SAFETY CHECKLIST Procedure to be Performed: thyroid FNA Sign In: A Moment of CARE was completed. Appropriate PPE (Personal Protective Equipment) worn by all providers involved with the procedure. Special equipment not required. Patient/Surrogate Stated/Verified: Patient name, Date of , Relevant allergies, and The intended procedure Time Out: Relevant labs, photos, and/or imaging studies have been reviewed. Intended patient and procedure match the source document(s) (e.g. consent, HANDP, associated studies [imaging, pathology]) match the intended patient and procedure. Consent obtained and matches the intended procedure. Yes. Correct side/site has been marked and visible. Medications required for this procedure are verified. Fire risk assessed and is not applicable. Implants: are not applicable. Sign Out: Specimens are all correctly labeled and sent. All instruments, equipment, possible retained foreign bodies are accounted for. Yes. The post-procedure plan of care has been communicated to the patient or surrogate. LABS: Latest Ref Rng 01/26/2025 - THYROID DATA FLOWSHEET TSH 0.270 - 4.200 mIU/L 2.570 Free T4 0.9 - 1.7 ng/dL 0.9 Free T3 2.3 - 4.1 pg/mL 3.7 Biopsy Results: Right Nodule FNA - AUS Left Nodule FNA - AUS Right Afirma - Benign (Risk of malignancy 4%) Left Afirma - Inconclusive (No results due to degraded RNA) IMPRESSION: No evidence of recurrent disease on exam today. PLAN: Repeat FNA + Afirma If repeat Afirma on Left is benign than total thyroidectomy vs RFA Ileana Hinojosa MD 03/13/2025 [facility] 03-16-2025 Instructions Nelly Thompson [facility] - 03/16/2025 11:36 AM EDT Thank you for choosing the [facility] Department of Endocrinology, Diabetes and Metabolism. Did you know that you need to call 48 hours in advance of your scheduled visit, if you are unable to make your appointment? The [facility] thanks you for your commitment, because patients not showing to their appointment results in a lost opportunity for patients to receive [facility] health care at the [facility]. To Cancel an appointment, please choose one of the following: - Call the Appointment Call Center at [phone] - From [place], Go to Appointments - Cancel Appts If cancelling, consider your need to reschedule to prevent further delays in your care. To Schedule an appointment, please choose one of the following: - Call the Appointment Call Center at [phone] - From [place], Go to Appointments - Request an Appt documented in this encounter [facility] 03-01-2025 Telephone encounter Note I called him about the FNA results and gave him the option of repeat FNA for the left thyroid nodule or thyroid surgery. He would like to have the repeat biopsy. Will plan for Mar 16. He agrees. Ileana Hinojosa MD [facility] 03-01-2025 Miscellaneous Notes I called him about the FNA results and gave him the option of repeat FNA for the left thyroid nodule or thyroid surgery. He would like to have the repeat biopsy. Will plan for Mar 16. He agrees. Ileana Hinojosa MD documented in this encounter [facility] 02-04-2025 Telephone encounter Note Called patient to review FNA results. Right and left are sent off for Afirma testing. Will have results in 2 weeks and will call patient to finalize plan. Patient verbalized understanding. FINAL DIAGNOSIS A - Thyroid, Right, Lobe, FNA - RIGHT Atypia of undetermined significance. (See comment) B - Thyroid, Left, Lobe, FNA - LEFT Atypia of undetermined significance. (See comment) Ana Abel RN [facility] 02-04-2025 Miscellaneous Notes Called patient to review FNA results. Right and left are sent off for Afirma testing. Will have results in 2 weeks and will call patient to finalize plan. Patient verbalized understanding. FINAL DIAGNOSIS A - Thyroid, Right, Lobe, FNA - RIGHT Atypia of undetermined significance. (See comment) B - Thyroid, Left, Lobe, FNA - LEFT Atypia of undetermined significance. (See comment) Aan Abel RN documented in this encounter [facility] 01-28-2025 Note HNO ID: [id number] Author: PA BRITO MD Service: ? Author Type: Physician Type: Progress Notes Filed: 01/28/2025 13:53 Note Text: HISTORY AND PHYSICAL Chelsey White 1960 REFERRING PHYSICIAN: Araceli Lopez MD, MD CHIEF COMPLAINT: Consult HPI: Benjamin White is a 64-year-old male presenting for evaluation of thyroid nodules. Benjamin was referred by Dr. Lopez for evaluation of thyroid nodules. An ultrasound performed on Friday revealed a 6 x 3 x 3 cm nodule in the left lobe and an additional nodule in the isthmus. Benjamin inquires about the necessity of hormone treatment post-surgery and expresses concerns about the size of the nodules and the potential for malignancy. He is also interested in understanding the surgical procedure and its implications. Benjamin has upcoming personal commitments, including a family reunion next , a three-week stay in [place] in February to assist with the arrival of a granddaughter, and a cruise to [place] in April. He expresses a desire to schedule any necessary procedures around these events. The patient is being seen by me today at the request of Dr. Araceli Lopez MD, MD for my opinion and advice regarding Multinodular goiter (primary encounter diagnosis). PAST MEDICAL HISTORY Diagnosis Date Anemia Asthma without status asthmaticus (HCC) BPH with obstruction/lower urinary tract symptoms GERD (gastroesophageal reflux disease) Hyperlipidemia Thyroid nodule PAST SURGICAL HISTORY Procedure Laterality Date INGUINAL HERNIA REPAIR HX Left 1977 Current Outpatient Medications Medication Sig albuterol HFA (PROVENTIL HFA, VENTOLIN HFA) 90 mcg/actuation inhaler Inhale 2 puffs as instructed every 4 hours as needed for wheezing/shortness of breath. atorvastatin (LIPITOR) 20 mg tablet Take 20 mg by mouth daily at bedtime. ferrous sulfate EC 324 mg (65 mg iron) TbEC Take 324 mg by mouth once daily. fexofenadine HCl (JUAN 60 MG CAP) Take 1 capsule by mouth once daily. RABEprazole (ACIPHEX) 20 mg tablet Take 20 mg by mouth daily at bedtime. No current facility-administered medications for this visit. ALLERGIES: Animal Dander, House Dust, and Tetanus Immune Globulin F(Ab')2 (Equine) PERSONAL HISTORY: Social History Tobacco Use Smoking status: Never Smokeless tobacco: Current Types: Snuff Vaping Use Vaping status: Never Used Substance Use Topics Alcohol use: Yes Alcohol/week: 6.0 standard drinks of alcohol Types: 6 Shots of liquor per week Drug use: Never FAMILY HISTORY: FAMILY HISTORY Problem Relation Age of Onset other (Heart stent) Mother other (Lymphoma) Father No Known Problems Sister No Known Problems Maternal Grandmother Heart disease Maternal Grandfather No Known Problems Paternal Grandmother No Known Problems Paternal Grandfather No Known Problems Half-brother No Known Problems Half-brother REVIEW OF SYMPTOMS: The review of systems data was entered by the nurse and reviewed by me There are no exam notes on file for this visit. PHYSICAL EXAMINATION: General: The patient is 64 year old male, well nourished, well hydrated in no acute distress. The patient is oriented to time, place, and person. VITALS: Blood pressure 130/84, pulse 90, temperature 36.5 ?C (97.7 ?F), temperature source Temporal, resp. rate 12, height 172.7 cm (5' 8"), weight 88.5 kg (195 lb), SpO2 96%. HEENT: Normal cephalic, ataumatic, pupils are equally round, sclera are anicteric, mucous membranes are moist, oropharynx is clear. Neck has no masses, asymmetry or lymphadenopathy. Thyroid is unremarkable. Respiratory: Clear to auscultation and percussion. Normal respiratory excursion and pattern. Cardiac: Examination is regular rate and rhythm. Abdominal exam: Soft, nontender, with no palpable masses. No hepatosplenomegaly. No palpable hernias. Rectal exam: Extremities: no clubbing, cyanosis or edema. No adenopathy. Other: LABORATORY VALUES: As Noted RADIOLOGIC STUDIES: As Noted Assessment IMPRESSION: Multinodular goiter (primary encounter diagnosis) PLAN: 1. Multinodular goiter (E04.2) Ultrasound reveals a 6x3x3 cm nodule on the left lobe and an additional nodule on the isthmus. Nodules exceeding 4 cm typically warrant surgical intervention due to the risk of malignancy and the limitations of fine needle aspiration (FNA) in completely ruling out cancer. - Perform FNA on both the isthmus and left lobe nodules to assess for malignancy. - Referred to Dr. Cipriano Hinojosa at the [facility] for surgical evaluation and potential thyroidectomy. - Discussed the possibility of requiring thyroid hormone replacement therapy post-surgery, contingent on TSH levels. - Patient understands the necessity of surgery regardless of FNA results due to the size of the nodule. - Patient advised to schedule surgery within the year, taking into account personal commitments. Diagnoses: (E04.2) Multinodular (more content not included)... [facility] 01-28-2025 History of Presen t illness Narrative HISTORY AND PHYSICAL Chelsey White 1960 REFERRING PHYSICIAN: Araceli Lopez MD, MD CHIEF COMPLAINT: Consult HPI: Benjamin White is a 64-year-old male presenting for evaluation of thyroid nodules. Benjamin was referred by Dr. Lopez for evaluation of thyroid nodules. An ultrasound performed on Friday revealed a 6 x 3 x 3 cm nodule in the left lobe and an additional nodule in the isthmus. Benjamin inquires about the necessity of hormone treatment post-surgery and expresses concerns about the size of the nodules and the potential for malignancy. He is also interested in understanding the surgical procedure and its implications. Benjamin has upcoming personal commitments, including a family reunion next , a three-week stay in [place] in February to assist with the arrival of a granddaughter, and a cruise to [place] in April. He expresses a desire to schedule any necessary procedures around these events. The patient is being seen by me today at the request of Dr. Araceli Lopez MD, MD for my opinion and advice regarding Multinodular goiter (primary encounter diagnosis). PAST MEDICAL HISTORY Diagnosis Date Anemia Asthma without status asthmaticus (HCC) BPH with obstruction/lower urinary tract symptoms GERD (gastroesophageal reflux disease) Hyperlipidemia Thyroid nodule PAST SURGICAL HISTORY Procedure Laterality Date INGUINAL HERNIA REPAIR HX Left 1977 Current Outpatient Medications Medication Sig albuterol HFA (PROVENTIL HFA, VENTOLIN HFA) 90 mcg/actuation inhaler Inhale 2 puffs as instructed every 4 hours as needed for wheezing/shortness of breath. atorvastatin (LIPITOR) 20 mg tablet Take 20 mg by mouth daily at bedtime. ferrous sulfate EC 324 mg (65 mg iron) TbEC Take 324 mg by mouth once daily. fexofenadine HCl (JUAN 60 MG CAP) Take 1 capsule by mouth once daily. RABEprazole (ACIPHEX) 20 mg tablet Take 20 mg by mouth daily at bedtime. No current facility-administered medications for this visit. ALLERGIES: Animal Dander, House Dust, and Tetanus Immune Globulin F(Ab')2 (Equine) PERSONAL HISTORY: Social History Tobacco Use Smoking status: Never Smokeless tobacco: Current Types: Snuff Vaping Use Vaping status: Never Used Substance Use Topics Alcohol use: Yes Alcohol/week: 6.0 standard drinks of alcohol Types: 6 Shots of liquor per week Drug use: Never FAMILY HISTORY: FAMILY HISTORY Problem Relation Age of Onset other (Heart stent) Mother other (Lymphoma) Father No Known Problems Sister No Known Problems Maternal Grandmother Heart disease Maternal Grandfather No Known Problems Paternal Grandmother No Known Problems Paternal Grandfather No Known Problems Half-brother No Known Problems Half-brother REVIEW OF SYMPTOMS: The review of systems data was entered by the nurse and reviewed by me There are no exam notes on file for this visit. PHYSICAL EXAMINATION: General: The patient is 64 year old male, well nourished, well hydrated in no acute distress. The patient is oriented to time, place, and person. VITALS: Blood pressure 130/84, pulse 90, temperature 36.5 C (97.7 F), temperature source Temporal, resp. rate 12, height 172.7 cm (5' 8"), weight 88.5 kg (195 lb), SpO2 96%. HEENT: Normal cephalic, ataumatic, pupils are equally round, sclera are anicteric, mucous membranes are moist, oropharynx is clear. Neck has no masses, asymmetry or lymphadenopathy. Thyroid is unremarkable. Respiratory: Clear to auscultation and percussion. Normal respiratory excursion and pattern. Cardiac: Examination is regular rate and rhythm. Abdominal exam: Soft, nontender, with no palpable masses. No hepatosplenomegaly. No palpable hernias. Rectal exam: Extremities: no clubbing, cyanosis or edema. No adenopathy. Other: LABORATORY VALUES: As Noted RADIOLOGIC STUDIES: As Noted Assessment IMPRESSION: Multinodular goiter (primary encounter diagnosis) PLAN: 1. Multinodular goiter (E04.2) Ultrasound reveals a 6x3x3 cm nodule on the left lobe and an additional nodule on the isthmus. Nodules exceeding 4 cm typically warrant surgical intervention due to the risk of malignancy and the limitations of fine needle aspiration (FNA) in completely ruling out cancer. - Perform FNA on both the isthmus and left lobe nodules to assess for malignancy. - Referred to Dr. Cipriano Hinojosa at the [facility] for surgical evaluation and potential thyroidectomy. - Discussed the possibility of requiring thyroid hormone replacement therapy post-surgery, contingent on TSH levels. - Patient understands the necessity of surgery regardless of FNA results due to the size of the nodule. - Patient advised to schedule surgery within the year, taking into account personal commitments. Diagnoses: (E04.2) Multinodular goiter (primary encounter diagnosis) A letter was sent to Dr. Araceli Lopez MD, MD indicating the above finding for this patient. Return to Clinic: The patient is instructed to follow-up with me as needed. Pa Brito III, MD REVIEW OF SYSTEMS: General: The patient denies fatigue, denies weight loss, denies weight gain, denies feeling hot, and denies feelings of cold. Eyes: The patient denies glaucoma, denies eye injury/surgery, wears glasses or contacts. Ear/Nose/Throat: The patient notes allergies, denies hayfever, denies ear infections, and denies bloody noses. Cardiovascular: The patient denies chest pain, denies heart disease, denies high blood pressure,denies cardiac stent, denies prior heart attack, denies irregular heart beat, denies high cholesterol, denies poor circulation, denies heart failure, other cardiac issues, denies claudication, denies cold feet, denies peripheral arterial stent. Respiratory: The patient denies tuberculosis, denies pneumonia, denies frequent cough, denies pulmonary embolism, denies shortness of breath, and denies coughing up blood. Gastrointestinal: The patient denies difficulty swallowing, notes acid reflux, denies ulcers, denies vomiting, denies jaundice/hepatitis, denies gallbladder problems, denies black or tarry stools, denies hemorrhoids, denies bleeding from rectum, denies diverticulitis, denies constipation, denies diarrhea, denies loss of stool control, and denies hernias. Kidney/Bladder: The patient denies kidney stones, denies urine infections, and denies bloody urine. Skin: The patient denies a history of skin cancer, denies bleeding/changing moles, and denies a history of skin rash. Neurologic: The patient denies a history of epilepsy/convulsions, denies headaches, denies head/spinal injuries, and denies stroke/TIA. Psychiatric: The patient denies psychiatric medications, denies depression, and denies voices, denies substance abuse. Endocrine: The patient notes thyroid disorders (nodule), denies diabetes, and denies hormonal problems. Hematologic: The patient denies a history of bruising, denies bleeding, and denies anemia, denies blood clots. Infections: The patient denies a history of measles and mumps, denies rheumatic fever, and denies sexually transmitted diseases. Musculoskeletal: The patient denies back pain/injury, denies back problems, denies sciatica, denies knee/foot trouble, denies arthritis, or denies gout. When was patient's last Mammogram screening? N/A Last Colonoscopy: N/A Carol Baker LPN documented in this encounter [facility] 01-26-2025 Note HNO ID: [id number] Author: ILEANA HINOJOSA MD Service: ? Author Type: Physician Type: Progress Notes Filed: 01/26/2025 10:17 Note Text: Endocrinology [facility] Ileana Hinojosa M.D. Section of Endocrine Surgery and Advanced Laparoscopic Surgery [address] [place] [address], [address] [address] ENDOCRINE SURGERY NEW CONSULTATION NAME: Chelsey White CLINIC NO: [id number] : 1960 Surgeon: Dr. Ileana Hinojosa REFERRING PROVIDER: Pa Brito III [address] [facility] [address] The patient was referred by the above provider and my findings and recommendations will be communicated by way of the shared medical record. HPI: The patient was evaluated today for a consultation regarding Multinodular goiter. History of head and neck radiation: No Family history of thyroid cancer: No History of previous thyroid biopsy or any cervical operation: No PMH: PAST MEDICAL HISTORY Diagnosis Date Anemia Asthma without status asthmaticus (HCC) BPH with obstruction/lower urinary tract symptoms GERD (gastroesophageal reflux disease) Hyperlipidemia Thyroid nodule PSH: PAST SURGICAL HISTORY Procedure Laterality Date INGUINAL HERNIA REPAIR HX Left 1977 Medications: Current Outpatient Medications on File Prior to Visit Medication Sig albuterol HFA (PROVENTIL HFA, VENTOLIN HFA) 90 mcg/actuation inhaler Inhale 2 puffs as instructed every 4 hours as needed for wheezing/shortness of breath. atorvastatin (LIPITOR) 20 mg tablet Take 20 mg by mouth daily at bedtime. ferrous sulfate EC 324 mg (65 mg iron) TbEC Take 324 mg by mouth once daily. fexofenadine HCl (JUAN 60 MG CAP) Take 1 capsule by mouth once daily. RABEprazole (ACIPHEX) 20 mg tablet Take 20 mg by mouth daily at bedtime. No current facility-administered medications on file prior to visit. All: ALLERGIES Allergen Reactions Animal Dander Other: See Comments Sneezing and tearing of eyes House Dust Other: See Comments Sneezing and tearing of eyes Tetanus Immune Glob* Unknown SH: Social History Tobacco Use Smoking status: Never Smokeless tobacco: Current Types: Snuff Vaping Use Vaping status: Never Used Substance Use Topics Alcohol use: Yes Alcohol/week: 6.0 standard drinks of alcohol Types: 6 Shots of liquor per week Drug use: Never FH: Pertinent history above; otherwise, non-contributory REVIEW OF SYSTEMS: GENERAL: Well-appearing, no malaise or fevers Dyspnea:No. Dysphagia:No. Pressure symptoms:No. PHYSICAL EXAM: On physical exam, Chelsey White is well appearing, alert, and oriented and appears euthyroid. On inspection, the skin over the anterior neck is smooth, no mass is visualized. Palpation revealed no thyroid enlargement. No lymphadenopathy was palpated on either side of the neck. ULTRASOUND EXAMINATION: Ultrasound examination was performed in the office today. This demonstrated a nodules involving both thyroid lobes. The largest nodule was in the left lobe measuring 3.59 cm, was hypoechoic and was Solid. The nodule on the right was 1.2 cm and at the isthmus 1.44 cm No worrisome lymphadenopathy was appreciated in either bilateral central neck or lateral jugular chain compartments. A fine needle aspiration biopsy performed from dominant right thyroid nodule, performed from dominant left thyroid nodule, done under ultrasound guidance, and patient tolerated the procedure well. UNIVERSAL PROTOCOL / SAFETY CHECKLIST Procedure to be Performed: thyroid fine needle biopsy Sign In: A Moment of CARE was completed. Appropriate PPE (Personal Protective Equipment) worn by all providers involved with the procedure. Special equipment not required. Patient/Surrogate Stated/Verified: Patient name, Date of , Relevant allergies, and The intended procedure Time Out: Relevant labs, photos, and/or imaging studies have been reviewed. Intended patient and procedure match the source document(s) (e.g. consent, HANDP, associated studies [imaging, pathology]) match the intended patient and procedure. Consent obtained and matches the intended procedure. Yes. Correct side/site is not applicable. Medications required for this procedure are verified. Fire risk assessed and is not applicable. Implants: are not applicable. Sign Out: Specimens are all correctly labeled and sent. All instruments, equipment, possible retained foreign bodies are accounted for. Yes. The post-procedure plan of care has been communicated to the patient or surrogate. LABS: No results found for: "TSH" No results found for: "CA" ASSESSMENT: In summary, Chelsey White has Multinodular goiter. PLAN: Will await biopsy results to finalize decision. Will also check his TFTs today. I appreciate being involved in the care of your patient, and please feel free to contact me should you have additional ques (more content not included)... [facility] 01-26-2025 History of Presen t illness Narrative Endocrinology Metabolism [facility] Isis Hinojosa M.D. Section of Endocrine Surgery and Advanced Laparoscopic Surgery [address] [place], [place] [id number] ENDOCRINE SURGERY NEW CONSULTATION NAME: Chelsey White CLINIC NO: [id number] : 1960 Surgeon: Dr. Ileana Hinojosa REFERRING PROVIDER: Pa Brito III [address] [facility] [address] The patient was referred by the above provider and my findings and recommendations will be communicated by way of the shared medical record. HPI: The patient was evaluated today for a consultation regarding Multinodular goiter. History of head and neck radiation: No Family history of thyroid cancer: No History of previous thyroid biopsy or any cervical operation: No PMH: PAST MEDICAL HISTORY Diagnosis Date Anemia Asthma without status asthmaticus (HCC) BPH with obstruction/lower urinary tract symptoms GERD (gastroesophageal reflux disease) Hyperlipidemia Thyroid nodule PSH: PAST SURGICAL HISTORY Procedure Laterality Date INGUINAL HERNIA REPAIR HX Left 1977 Medications: Current Outpatient Medications on File Prior to Visit Medication Sig albuterol HFA (PROVENTIL HFA, VENTOLIN HFA) 90 mcg/actuation inhaler Inhale 2 puffs as instructed every 4 hours as needed for wheezing/shortness of breath. atorvastatin (LIPITOR) 20 mg tablet Take 20 mg by mouth daily at bedtime. ferrous sulfate EC 324 mg (65 mg iron) TbEC Take 324 mg by mouth once daily. fexofenadine HCl (JUAN 60 MG CAP) Take 1 capsule by mouth once daily. RABEprazole (ACIPHEX) 20 mg tablet Take 20 mg by mouth daily at bedtime. No current facility-administered medications on file prior to visit. All: ALLERGIES Allergen Reactions Animal Dander Other: See Comments Sneezing and tearing of eyes House Dust Other: See Comments Sneezing and tearing of eyes Tetanus Immune Glob* Unknown SH: Social History Tobacco Use Smoking status: Never Smokeless tobacco: Current Types: Snuff Vaping Use Vaping status: Never Used Substance Use Topics Alcohol use: Yes Alcohol/week: 6.0 standard drinks of alcohol Types: 6 Shots of liquor per week Drug use: Never FH: Pertinent history above; otherwise, non-contributory REVIEW OF SYSTEMS: GENERAL: Well-appearing, no malaise or fevers Dyspnea:No. Dysphagia:No. Pressure symptoms:No. PHYSICAL EXAM: On physical exam, Chelsey White is well appearing, alert, and oriented and appears euthyroid. On inspection, the skin over the anterior neck is smooth, no mass is visualized. Palpation revealed no thyroid enlargement. No lymphadenopathy was palpated on either side of the neck. ULTRASOUND EXAMINATION: Ultrasound examination was performed in the office today. This demonstrated a nodules involving both thyroid lobes. The largest nodule was in the left lobe measuring 3.59 cm, was hypoechoic and was Solid. The nodule on the right was 1.2 cm and at the isthmus 1.44 cm No worrisome lymphadenopathy was appreciated in either bilateral central neck or lateral jugular chain compartments. A fine needle aspiration biopsy performed from dominant right thyroid nodule, performed from dominant left thyroid nodule, done under ultrasound guidance, and patient tolerated the procedure well. UNIVERSAL PROTOCOL / SAFETY CHECKLIST Procedure to be Performed: thyroid fine needle biopsy Sign In: A Moment of CARE was completed. Appropriate PPE (Personal Protective Equipment) worn by all providers involved with the procedure. Special equipment not required. Patient/Surrogate Stated/Verified: Patient name, Date of , Relevant allergies, and The intended procedure Time Out: Relevant labs, photos, and/or imaging studies have been reviewed. Intended patient and procedure match the source document(s) (e.g. consent, H&P, associated studies [imaging, pathology]) match the intended patient and procedure. Consent obtained and matches the intended procedure. Yes. Correct side/site is not applicable. Medications required for this procedure are verified. Fire risk assessed and is not applicable. Implants: are not applicable. Sign Out: Specimens are all correctly labeled and sent. All instruments, equipment, possible retained foreign bodies are accounted for. Yes. The post-procedure plan of care has been communicated to the patient or surrogate. LABS: No results found for: "TSH" No results found for: "CA" ASSESSMENT: In summary, Chelsey White has Multinodular goiter. PLAN: Will await biopsy results to finalize decision. Will also check his TFTs today. I appreciate being involved in the care of your patient, and please feel free to contact me should you have additional questions. Sincerely, Ileana Hinojosa MD 01/26/2025 CC: Pa Brito III [address] [facility] [id number] documented in this encounter [facility] 01-10-2025 Note HNO ID: [id number] Author: CAROL BAKER LPN Service: ? Author Type: LICENSED NURSE Type: Progress Notes Filed: 01/28/2025 13:53 Note Text: REVIEW OF SYSTEMS: General: The patient denies fatigue, denies weight loss, denies weight gain, denies feeling hot, and denies feelings of cold. Eyes: The patient denies glaucoma, denies eye injury/surgery, wears glasses or contacts. Ear/Nose/Throat: The patient notes allergies, denies hayfever, denies ear infections, and denies bloody noses. Cardiovascular: The patient denies chest pain, denies heart disease, denies high blood pressure,denies cardiac stent, denies prior heart attack, denies irregular heart beat, denies high cholesterol, denies poor circulation, denies heart failure, other cardiac issues, denies claudication, denies cold feet, denies peripheral arterial stent. Respiratory: The patient denies tuberculosis, denies pneumonia, denies frequent cough, denies pulmonary embolism, denies shortness of breath, and denies coughing up blood. Gastrointestinal: The patient denies difficulty swallowing, notes acid reflux, denies ulcers, denies vomiting, denies jaundice/hepatitis, denies gallbladder problems, denies black or tarry stools, denies hemorrhoids, denies bleeding from rectum, denies diverticulitis, denies constipation, denies diarrhea, denies loss of stool control, and denies hernias. Kidney/Bladder: The patient denies kidney stones, denies urine infections, and denies bloody urine. Skin: The patient denies a history of skin cancer, denies bleeding/changing moles, and denies a history of skin rash. Neurologic: The patient denies a history of epilepsy/convulsions, denies headaches, denies head/spinal injuries, and denies stroke/TIA. Psychiatric: The patient denies psychiatric medications, denies depression, and denies voices, denies substance abuse. Endocrine: The patient notes thyroid disorders (nodule), denies diabetes, and denies hormonal problems. Hematologic: The patient denies a history of bruising, denies bleeding, and denies anemia, denies blood clots. Infections: The patient denies a history of measles and mumps, denies rheumatic fever, and denies sexually transmitted diseases. Musculoskeletal: The patient denies back pain/injury, denies back problems, denies sciatica, denies knee/foot trouble, denies arthritis, or denies gout. When was patient's last Mammogram screening? N/A Last Colonoscopy: N/A Carol Baker LPN [facility] 01-07-2025 Radiology Diagnostic study note [facility] [address] [place] [address] Post Void Residual Bladder MR#: [id number] Acct: [id number] Name: CHELSEY WHITE JrMoni Rep #: [id number] : 1960 M 64 From: Donavan Jones MD PCP: Dr. Araceli Lopez MD Status: RE G CLI Study:Post Void Residual Bladder Date of Exam : 01/07/25 Exam# [id number] Ordering Dr: Araceli Lopez MD PROCEDURE: POST VOID RESIDUAL BLADDER 01/07/2025 REASON FOR EXAM: BPH OBSTRUCTION TECHNIQUE: POST VOID RESIDUAL BLADDER COMPARISON: None FINDINGS: Prevoid volume: 49.3 mL Postvoid volume 1.9 mm. Bladder wall thickness: 3 mm. US/Post Void Residual Bladder IMPRESSION: No significant postvoid residual. Reading Location: [id number] CC: Dr. Araceli Lopez MD ~ [place]: Signed [facility] 01-06-2025 Radiology Diagnostic study note [facility] [address] [place], [place] [id number] Thyroid MR#: [id number] Acct: [id number] Name: CHELSEY WHITE JrMoni Rep #: [id number] : 1960 M 64 From: Katherine De La Rosa MD PCP: Dr. Araceli Lopez MD Status: RE G CLI Study:Thyroid Date of Exam: 01/05/25 Exam# [id number] Ordering Dr: Araceli Lopez MD PROCEDURE: THYROID, 01/05/2025 REASON FOR EXAM: NODULE TECHNIQUE: Grayscale and color Doppler imaging of the thyroid was performed. COMPARISON: None FINDINGS: Right lobe measures 5.5 x 1.8 x 1.4cm. Essentially homogeneous background echotexture. No abnormal vascularity. No solid or mostly solid nodules are identified. Left lobe measures 7.7 x 3.53.4 cm. Essentially homogeneous background echotexture. No abnormal vascularity. Nodules as below: *6.0 x 3.1 x 3.3 cm, solid, mostly isoechoic, slightly taller than wide on transverse imaging, TI-RADS 4. Isthmus measures 5 mm in thickness. Nodules as below: *1.4 x 0.9 x 1.4 cm, solid, hypoechoic, TI-RADS 4. *1.4 x 1.5 x 0.7 cm, solid, hypoechoic, TI-RADS 4. US/Thyroid IMPRESSION: 1. Assessment is TI-RADS 4. A 6.0 cm nodule on the LEFT and a 1.5 cm nodule in the isthmus meet criteria for FNA which is recommended as per the below. A 1.4 cm TI-RADS 4 nodule in the LEFT warrants follow-up in 1 year per the below. 2. Otherwise homogeneous gland with relative enlargement of the LEFT lobe by thedominant nodule. Management recommendations for TI-RADS 4 findings: FNA if = 1.5 cm; Follow if = 1 cm at 1, 2, 3, and 5 years. Recommendations per ACR Thyroid Imaging, Reporting and Data System (TI-RADS): White Paper of the ACR TI-RADS Committee, 2017 (https://linkinghub.elsevier.co m/retrieve/pii/J970872761430746 2) Reading Location: [id number] CC: Dr. 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 Multinodular goiter Nontoxic multinodular goiter [facility] Diagnosis Multinodular goiter- Primary Nontoxic multinodular goiter [facility] Diagnosis Multiple thyroid nodules- Primary Nontoxic multinodular goiter [facility] referral (narrative)No reason for referral information availablePar[facility] Work Phone: Chief Complaint and Reason for Visit Chief Complaint EORDER Chief Complaint EORDER PSA Chief Complaint Admit Date THYROID NODULE January 05, 2025 1:56 pm BPH OBSTRUCTION January 07, 2025 10:1 7am Summary Purpose Family History No Family History Records FoundNo Family History Records Found Advance Directives No Advanced Directives Records FoundNo Advanced Directives Records Found Additional Source Comments Care Teams (unrecognized sec tion and content) Team Status: Active Member Role Status Dates Dr. Nancy Seals MD Family Provider Active Dr. Nancy Seals MD Primary Care Provider Active Team Status: Inactive Member Role Status Dates Dr. Nancy Seals MD Primary Care Prov ider, Attending Provider, Referring Provider Active Team Status: Active Member Role/Relationship Status Dates Dr. Araceli Lopez MD Primary Care Provider Active Team Status: Inactive Member Role/Relationship Status Dates Dr. Araceli Lopez MD Primary Care Provider Active Start: January 05, 2025 End: January 05, 2025 Dr. Araceli Lopez MD Attending Provider Active Start: January 05, 2025 End: January 05, 2025 Dr. Araceli Lopez MD Referring Provider Active Start: January 05, 2025 End: January 05, 2025 Team Status: Active Member Role/Relationship Status Dates Dr. Araceli Lopez MD Primary Care Provider Active Start: January 07, 2025 Dr. Araceli Lopez MD Attending Provider Active Start: January 07, 2025 Dr. Araceli Lopez MD Referring Provider Active Start: January 07, 2025 Team Status: Inactive Member Role/Relationship Status Dates Dr. Araceli Lopez MD Primary Care Provider Active Start: January 07, 2025 End: January 07, 2025 Dr. Araceli Lopez MD Attending Provider Active Start: January 07, 2025 End: January 07, 2025 Dr. Araceli Lopez MD Referring Provider Active Start: January 07, 2025 End: January 07, 2025 Enterprise Account Executive Relationship Specialty Start Date End Date Araceli Lopez MD [address] [place] [address] PCP - General Family Medicine 01/28/25 Enterprise Account Executive Relationship Specialty Start Date End Date Araceli Lopez MD [address] [place], [place] [id number] PCP - General Family Medicine 01/28/25 Goals (unrecognized section and content) Goals may be documented in a n alternate sectionGoals may be documented in an alternate sectionGoals may be documented in an alternate sectionGoals may be documented in an alternate section Source Comments (unrecognize d section and content) In the event this informatio n is protected by the Federal Confidentiality of Alcohol and Drug Abuse Patient Records regulations: The Federal rules restrict any use of the information to criminally investigate or prosecute any alcohol or drug abuse patient.[facility] the event this information is protected by the Federal Confidentiality of Alcohol and Drug Abuse Patient Records regulations: The Federal rules restrict any use of the information to criminally investigate or prosecute any alcohol or drug abuse patient.[facility] Hospital[facility] the event this information is protected by the Federal Confidentiality of Alcohol and Drug Abuse Patient Records regulations: The Federal rules restrict any use of the information to criminally investigate or prosecute any alcohol or drug abuse patient.[facility] Hospital[facility] the event this information is protected by the Federal Confidentiality of Alcohol and Drug Abuse Patient Records regulations: The Federal rules restrict any use of the information to criminally investigate or prosecute any alcohol or drug abuse patient.[facility] HospitalIn the event this information is protected by the Federal Confidentiality of Alcohol and Drug Abuse Patient Records regulations: The Federal rules restrict any use of the information to criminally investigate or prosecute any alcohol or drug abuse patient.[facility] HospitalIn the event this information is protected by the Federal Confidentiality of Alcohol and Drug Abuse Patient Records regulations: The Federal rules restrict any use of the information to criminally investigate or prosecute any alcohol or drug abuse patient.[facility] Reason for Visit (unrecogniz ed section and content) Reason Comments Thyroid Problem Specialty Diagnoses / Procedures Referred By Sherlyn t Referred To Contact Endocrinology Diagnoses Multinodular goiter Procedures CONSULT TO ENDOCRINOLOGY OFFICE/OUTPATIENT [facility] 60 MINUTES Pa Brito MD [address] [place] [address] Phone: tel: fax: [place] [address] [place] [address] Phone: tel: fax: Referral ID Status Reason Start Date Expiration Date V isits Requested Visits Authorized [id number] Closed PCP Requested Referral 01/10/2025 01/10/2026 1 1 Reason Comments Consult Reason Comments 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 [employer] provides no warranty or guarantee of the accuracy or completeness of information in this document.
== END | disposition home or self-care (01) ==
PROVIDERS: PCP Family Medicine; Referring Provider Family Medicine; Visit Provider Family Medicine
DX: R06.02 Shortness of breath (principal)
CPT/HCPCS: 93306; Q9957; C8929

== ENCOUNTER → 2025-06-14 | Outpatient (CLI) | payer MEDICARE, SELFPAY ==
[2025-06-14 12:23] LABS: Hematocrit 34.6 % (40-54); Hemoglobin 10.5 g/dL (13.0-16.5); Immature Granulocytes Count 0.020 X10^3/uL (0.0-0.0); Mean Corp Hgb Conc 30.3 g/dL (32-36); Mean Corpuscular Volume 85.6 fL (80-94); Mean Platelet Vol. 11.5 fl (6.2-12.0); NRBC Flagged by Analyzer 0 % (0-5); POSITIVE MORPHOLOGY YES; Platelet Count 174 K/mm3 (150-450); RBC Distribution Width CV 23.3 % (11.6-14.6); RBC Distribution Width SD 72.6 fl (35.1-43.9); Red Blood Count 4.04 M/mm3 (4.6-6.2); White Blood Count 5.3 K/mm3 (4.4-11.0)
[2025-06-14 12:24] LABS: Differential Indicated SCAN CRITERIA MET
[2025-06-14 13:00] LABS: Anisocytosis 2+; Ferritin 27 ng/mL (37-417); Polychromasia 1+
[2025-06-14 13:40] LABS: Iron 378 ug/dL (65-175); Iron Binding Capacity,Unsat < 17 ug/dL (228-428)
== END | disposition home or self-care (01) ==
LOC: MTLAB 10:31
PROVIDERS: PCP Family Medicine; Referring Provider Family Medicine; Visit Provider Family Medicine
DX: D64.9 Anemia, unspecified (principal)
CPT/HCPCS: 36415; 82728; 83540; 83550; 85025